=== PATIENT | male | born 1955 | race Native Hawaiian/Other Pacific Islander ===

== ENCOUNTER 2017-02-26 14:03 | Outpatient (CLI) | payer OTHER | END 2017-02-26 15:05 | disposition home or self-care (01) | LOC: RAD 14:03 | DX: M51.37 Other intervertebral disc degeneration, lumbosacral region (principal); M62.48 Contracture of muscle, other site ==

== ENCOUNTER 2020-11-25 07:00 | Inpatient (IN) | payer OTHER ==
[~2020-11-25] VITALS: Ht 175.3 cm; Wt 77.3 kg
[2020-11-25] VITALS (18 sets, daily range): BP systolic 109–159; BP diastolic 59–78; TEMP 97.4–98.7; Ht 175.3 cm; Wt 77.3 kg
[2020-11-25 07:44] LABS: PLATELET COUNT 175 K/uL (142-355)
[2020-11-25 07:52] LABS: POTASSIUM 3.4 mmol/L (3.6-5.2); SODIUM 126 mmol/L (136-145)
[2020-11-25 08:15] LABS: PARTIAL THROMBOPLASTIN TIME 31.6 SECONDS (24.5-33.6)
--- NOTE | 2020-11-25 13:35 | NUR ---
REC'D PT FROM ER VIA STRECTHER FROM ER. PT AWAKE AND ALERT. NO DISTRESS NOTED. HIGH FLOW O2 INTACT AT THIS TIME. SATS 99% WITH HIGH FLOW. DR VEE AT BS MAKING ROUNDS AT THIS TIME. PT DENIES ANY PROBOEMS AT TIME OF ADMISSOIN PT WAS ABLE TO GET OFF STRECTHER AND AMBULATE TO BED IN ROOM AT TIME OF ADMINSSION . PT VERBALLY CONSENTED TO REMDISIVIR AT TIME OF ADMSSION
[2020-11-25] MEDS ORDERED: LISI20TA31 PO (14:46)
[2020-11-25] MEDS ORDERED: INSUINJ47 SC (14:51)
[2020-11-26] VITALS (12 sets, daily range): BP systolic 145–178; BP diastolic 67–82; TEMP 97.5–98.6
[2020-11-26 05:42] LABS: PLATELET COUNT 204 K/uL (142-355)
[2020-11-26 05:56] LABS: POTASSIUM 3.3 mmol/L (3.6-5.2)
--- NOTE | 2020-11-26 07:35 | NUR ---
ROUNDING ON PATIENT AND HE IS NOTED RESTLESS AND WITH INCREASED WORKFORCE OF BREATHING RR-24 ON HIGH FLOW NASAL CANNULA 50 LPM, 100%. SHIFT ASSESSMENT COMPLETED. IV 20G TO THE RIGHT AC NOTED PATENT AND INTACT INFUSING NS AT 75 ML/HR.
--- NOTE | 2020-11-26 09:25 | NUR ---
PATIENT GIVEN MORNING MEDS AND TOOK WITHOUT DIFFICULTY.
--- NOTE | 2020-11-26 10:54 | NUR ---
PATIENT VOMITED APPROX. 100 ML OF CLEAR EMESIS WITH SMALL FOOD PARTICLES. PATIENT GIVEN 4 MG OF ZOFRAN IV PUSH.
--- NOTE | 2020-11-26 11:51 | NUR ---
PATIENT NOTED WITH BLOOD SUGAR OF 435. STAT GLUCOSE REPEAT ORDERED PLACED AT THIS TIME.
--- NOTE | 2020-11-26 12:05 | NUR ---
PATIENT WAS VERY RESTLESS WITH INCREASED GRIMACING AND MOANING. PATIENT O2 WAS FLUCTUATING FROM 85-91%, WITH ONE SATS DROPPING LOW 78% WITH RR 28-40 BPM. NOTIFIED AND NEW ORDER GIVEN FOR A ONE TIME DOSE OF ATIVAN 0.5 MG IV PUSH X1 DOSE NOW. ATIVAN GIVEN AT THIS TIME. WILL REASSESS FOR DECREASED RESTLESSNESS.
--- NOTE | 2020-11-26 14:30 | NUR ---
PATIENT TRANSFERRED FROM THE MEDICAL SURGICAL FLOOR TO ICU BED #1. PATIENT PLACED ON MONITORS WITH SPO2 AT 92% ON HIGH FLOW WITH FOLLOWING SETTINGS: 60LPM AND 100%.
--- NOTE | 2020-11-26 14:41 | NUR ---
PATIENT NOTED RESTLESS AND WITH INCREASED WORKFORCE OF BREATHING WITH RR-40S AND SPO2 91% AND FLUCTUATING DOWN INTO THE 70'S-80'S.
--- NOTE | 2020-11-26 15:30 | NUR ---
PATIENT NOTED RESTLESS AND GRIMACING AND MOANING WITH RR 41, SPO2 88%. PATIENT GIVEN MORPHINE 1 MG IV PUSH X1. WILL REASSESS FOR DECREASE IN WORKFORCE OF BREATHING.
--- NOTE | 2020-11-26 15:40 | NUR ---
AT THE BEDSIDE TALKING TO PATIENT. PATIENT CHOOSES TO BE A DNR AT THIS TIME.
--- NOTE | 2020-11-26 15:59 | NUR ---
PATIENT NOTED RESTING QUIETLY WITH EYES CLOSED, SPO2 FLUCTUATING B/W 79-89%.
--- NOTE | 2020-11-26 17:25 | NUR ---
PATIENT AWAKE AND DROWSY AND IS CALLING FOR THE NURSE TO HELP HIM WITH THE URINAL. PATIENT WAS ABLE TO REPOSITION HIMSELF TO THE BEDSIDE BUT HE IS VERY WEAK AND HAD TO BE ASSISTED WITH THE URINAL. PATIENT DID NOT VOID ANY AT THIS TIME.RR INCREASING 32
--- NOTE | 2020-11-26 17:35 | NUR ---
FSBS BLOOD SUGAR 226
--- NOTE | 2020-11-26 18:04 | NUR ---
IV TO THE LEFT AC CAME OUT WITH TIP INTACT. AREA SECURED WITH 2X2 GAUZE. IV 20G X1 ATTEMPT STARTED TO THE LEFT FOREARM WITHOUT DIFFICULTY. FLUSHES WELL.
--- NOTE | 2020-11-26 19:00 | NUR ---
RECEIVED REPORT FROM ROBBY PERRY RN. PT IS DROWSY. WEARING HIGH FLOW OXYGEN AT 60L 100 PERCENT. O2 SATS ARE FLUCTUATING 80'S TO LOW 90'S. PM ASSESSMENT COMPLETED. PT DENIES ANY HISTORY OF COPD OR SMOKING.
--- NOTE | 2020-11-26 20:24 | NUR ---
PT IS RESTLESS AND HAS HICCUPS. PT DRANK SMALL AMOUNT OF WATER AND IS USING HIGH FLOW OXYGEN AT 60L 100 PERCENT. RESP ARE 28 TO 30 PER MINUTE. PT IS DNR STATUS.
--- NOTE | 2020-11-26 22:00 | NUR ---
PT VOIDED 500ML OF DARK TEA COLORED URINE. PT IS ALERT. PT IS COVID POSITIVE.
[2020-11-27] VITALS (23 sets, daily range): BP systolic 130–176; BP diastolic 59–90; TEMP 97.6–98.4
--- NOTE | 2020-11-27 00:02 | NUR ---
PT WAS MEDICATED WITH MORPHINE 1 MG IV. PT IS RESTLESS AND RESPIRATIONS ARE 30.
--- NOTE | 2020-11-27 02:09 | NUR ---
HYDRALAZINE 10 MG IVSP GIVEN FOR ELEVATED BP OF 165/80. PT HR IS 103.
--- NOTE | 2020-11-27 02:57 | NUR ---
BP IS 160/88 AFTER HYDRALAZINE ADMINISTRATION. HR IS 102.
--- NOTE | 2020-11-27 02:59 | NUR ---
PTS O2 SAT IS 86 PERCENT TO 91 PERCENT.
[2020-11-27 05:26] LABS: PLATELET COUNT 225 K/uL (142-355)
[2020-11-27 05:41] LABS: POTASSIUM 3.9 mmol/L (3.6-5.2)
--- NOTE | 2020-11-27 07:00 | NUR ---
REPORT FROM PM SHIFT. PT RESTING WITH EYES CLOSED IN SF. EYES CLOSED. O2 SAT'S 90% ON 100% O2 PER HIGH FLOW O2 AT 60L. RR30.
--- NOTE | 2020-11-27 08:00 | NUR ---
T AWAKE & RESTLESS ,ASKING' WHEN CAN I GO HOME?' PT ORIENTED TO PLACE & SITUATION QUESTIONED WHAT DAY IT WAS, ASKED ' HOW LONG HAVE I BEEN IN HERE?' REVIEWED ADMISSION DATE & TODAYS DATE. PT BECAME ANXIOUS WITH INCREASED RESP RATE TO 34. MEDICATED WITH MORPHINE 1 MG SIVP.
--- NOTE | 2020-11-27 08:43 | NUR ---
DR VEE CALLED TO CHECK ON PATIENT. NEW ORDERS. PT ASSISTED TO TURN TO L SIDE HOB UP. A&O FORGETFUL OF HOW WEAK HE IS. EXPLAINED OXYGEN USE, REVIEWED MEDS.
--- NOTE | 2020-11-27 08:52 | NUR ---
PT'S CALLED TO CK ON HIM.DISCUSSED LABS & VITAL SIGNS.
--- NOTE | 2020-11-27 09:00 | NUR ---
PT WITH ELEVATED BP176/68, HR 98, O2 SATS 80-85%. MEDICATED WITH HYDRALAZINE 10 MG SIVP.
--- NOTE | 2020-11-27 09:52 | NUR ---
PT'S CALLED TO CHECK ON HIM.DISCUSSED VITAL SIGNS & CONDITION.
--- NOTE | 2020-11-27 10:25 | NUR ---
PHYSICAL THERAPY IN TO SEE PT.PT ASSISTED TO PRONE. PT ANXIOUS. DR PEREZ AT BS & AWARE.
--- NOTE | 2020-11-27 10:27 | NUR ---
PT MEDICATED WITH MORPHINE 1 MG SIVP FOR ANXIETY & 'MY STOMAC HURTS LYING ON IT'.HT 102,RESP RATE 34.O2 SAT 81-84%.
--- NOTE | 2020-11-27 10:32 | NUR ---
O2 SATS REMAIN 81-84% RR 36. PT REMAINS ANXIOUS. PT ASSISTED TO TURN BACK TO L SIDE AFTER HE STATES' I CAN'T LAY THIS WAY'. DR VEE HERE & AWARE.
--- NOTE | 2020-11-27 10:50 | NUR ---
RESTING WITH EYES CLOSED. RR 34, O2 SATS 85%.
--- NOTE | 2020-11-27 11:35 | NUR ---
PT RESTING WITH EYES CLOSED, RESP RATE27, O2 SAT 82%, BP 158/ 69.
--- NOTE | 2020-11-27 11:45 | NUR ---
TALKED WITH RESPIRATORY LOGAN JEFFRIES SKEIN DRIER & DR OLEARY R/T PT'S LOW O2 SATS 80-81% & OCCAISIONAL 84 %. PT HAS REFUSED VENT AT THIS TIME. PT ENCOUTAGED TO ROLL TO L SIDE. PT TOLERATED WITH O2 SAT 81-85%.
--- NOTE | 2020-11-27 12:59 | NUR ---
PT AWAKE & REQUESTING WATER, ASSISTED TO DRINK H2O WITHOUT PROBLEMS. ASSISTED TO TURN TO L SIDE.
--- NOTE | 2020-11-27 13:04 | NUR ---
PT RESTING WITH EYES CLOSED, O2 SATS 96%.
--- NOTE | 2020-11-27 14:56 | NUR ---
PT AWAKE & CALLING FOR WATER. ASSISTED TO DRINK. DRANK SMALL AMT OF ENSURE.. O2 SATS DECREASE TO 80-81% WHEN PT ROLLED TO BACK,MEDICATED WITH HYDRALAZINE 10 MG SIVP FOR BP 169/64. O2 SATS BACK UP TO 88 % AFTER ROLLING BACK TO L SIDE. FACE BATHED, MOUTHCARE.
--- NOTE | 2020-11-27 15:57 | NUR ---
RESTING QUIETLY WITH EYES CLOSED. O2 SAT 88%,RESP RATE28. PT CALM.
--- NOTE | 2020-11-27 16:05 | NUR ---
PT REOLLED SELF TO BACK,C/O MY FEETS COLD. PT COVERED WITH A SHEET, BACK TO SLEEP.
--- NOTE | 2020-11-27 17:02 | NUR ---
PT MEDICATED WITH HYDRALAZINE 10MG SIVP FOR ELEVATED BP. 1703 MEDICATED WITH MORPHIME 1MG SIVP FOR RESTLESSNESS. O2 SAT 85%.
--- NOTE | 2020-11-27 18:10 | NUR ---
PT RESTING QUIETLY WITH EYES CLOSED. CALM. BP 130/59,HR 106,RR 29-31.DR VEE CALLED TO CK ON PT. REPORTED VS AT THIS TIME.
--- NOTE | 2020-11-27 21:51 | NUR ---
PT MEDICATED AT 1930PM MORPHINE 1 MG IVSP. DRANK 100 ML OF WATER. 21:00 PM PT WOKE UP BECAME RESTLESS. GROANING. RESPIRATIONS INCREASED. O2 SATS DROP. MEDICATED WITH MORPHINE 1 MG IVSP. USING HIGH FLOW OXYGEN.
--- NOTE | 2020-11-27 22:44 | NUR ---
PT REPOSITIONED HIMSELF IN BED. LYING ON HIS RIGHT SIDE. O2 SAT IS 82 PERCENT. RESP 44. HR IS 101. USING HIGH FLOW OXYGEN.
--- NOTE | 2020-11-27 23:53 | NUR ---
MORPHINE 1 MG IVSP GIVEN TO PT. PT IS RESTLESS AND RESP ARE 38 TO 40 BPM. BP IS 150/76. O2 SAT IS 77 PERCENT.
[2020-11-28] VITALS (10 sets, daily range): BP systolic 132–169; BP diastolic 60–93; TEMP 97.4–98.9
--- NOTE | 2020-11-28 01:14 | NUR ---
PT WAS DESATING INTO THE 60'S AND RESPIRTORY EFFORT INCREASING IN RATE TO 44. RT SPOKE WITH PT ABOUT USING THE BIPAP. PT VOICED UNDERSTANDING THAT BIPAP WOULD HELP. PT UNDERSTOOD THAT THIS WAS NOT THE VENTILATOR. BIPAP MASK PLACED ON PT. PT SAT IMPROVED NOW AT 90 PERCENT. RESP RATE 30 PER MINUTE. HR IS 99 PERCENT.
--- NOTE | 2020-11-28 01:28 | NUR ---
BP IS 172/75. HYDRALAZINE 10 MG IVSP GIVEN. WILL RECHECK. PT IS USING BIPAP AND PT'S O2 SAT IS NOW 91 PERCENT AND RATE IS 28 BPM.
--- NOTE | 2020-11-28 02:10 | NUR ---
PT IS OFF BIPAP. PER HIS REQUEST, "I CANT TAKE THIS ANYMORE"! O2 SAT DROPPED TO 74 PERCENT. RESP ARE 34-40 PER MINUTE.PLACED BACK ON HIGH FLOW OXYGEN AND RESP RATE IS 42 PER MINUTE.
--- NOTE | 2020-11-28 02:35 | NUR ---
PT REMOVED FROM BIPAP AND PLACED BACK ON HFNC. SPO2 78%
--- NOTE | 2020-11-28 03:00 | NUR ---
PT IS RESTING ON HIS RIGHT SIDE. USING HIGH FLOW OXYGEN AT 60L 100 PERCENT.
--- NOTE | 2020-11-28 04:55 | NUR ---
PT USED URINAL AND VOIDED 500 ML OF URINE. PT MEDICATED WITH MORPHINE 1 MG IVSP.
[2020-11-28 05:26] LABS: PLATELET COUNT 231 K/uL (142-355)
[2020-11-28 05:38] LABS: POTASSIUM 4.2 mmol/L (3.6-5.2)
--- NOTE | 2020-11-28 08:00 | NUR ---
SPOKE TO DR GILBERT CONCERNING PT'S LAST WISHES TO REMAIN A DNR. PT ORIENTED X 4 AND VERBALLY STATED THAT WAS HIS WISHES AND HE DID NOT WANT TO MAKE ANY CHANGES AT THIS TIME. PT HOWEVER DID EXPRESS WISHED TO SEE HIS AND SON THROUGH A WINDOW IF AT ALL POSSIBLE. AWAITING FURTHER ORDERS VIA
--- NOTE | 2020-11-28 08:30 | NUR ---
PT WOKE UP CONFUSED AND VERY ANXIOUS. PT STATED "I NEED TO GET UP AND GO TO BED." ORIENTED PT TO LOCATION AND INFOMRED HIM HE WAS IN BED TO TRY TO RELAX. PT'S RR NOTED TO BE 44 AND SATS ON HIGH FLOW 68%. PT REC'D PRN MORPHINE AT THIS TIME PER MD ORDERS.
--- NOTE | 2020-11-28 08:45 | NUR ---
PT REMAINS VERY ANXIOUS AND CONFUSED. DR GILBERT NOTIFIED AND NEW ORDERS REC'D TO TRY ATIVAN 1MG IV NOW AND REPEAT DOSE OF MORPHINE AT THIS TIME.
--- NOTE | 2020-11-28 09:05 | NUR ---
PT FINALLY CALM AND RESTING IN BED WITH EYES CLOSED. ASSISTED PT TO HIGH FOWLERS POSITION. RR REMAIN INCREASED AT 40 WITH SATS ON HIGH FLOW AROUND 70-72%. AWARE. WILL CONT TO MONITOR.
--- NOTE | 2020-11-28 12:20 | NUR ---
PT'S FATHER IN LAW CALLED AND PASSWORD PROVIDED BY HIM TO ME. ALL QUESTIONS ANSWERED TO MY ABILITY. EXPLAINED AGAIN TO [place] VIA PHONE PT WAS VERY SICK AND HAD INFORMED MD OF HIS WIHSES PRIOR TO TODAY. EXPLAINED TO THEM PT ALSO STATED TO ME THIS AM HE DID NOT WISH TO BE PLACED ON VENT AT THIS TIME.
--- NOTE | 2020-11-28 12:45 | NUR ---
PT ASKAED FOR URINAL AT THIS TIME BUT UNABLE TO VOID. PT HAS NOT HAD ANY URINE OUTPUT THIS SHIFT. PT'S LOWER ABD PALPATED AND NOTED TO BE DISTENDED. DR GILBERT CALLED ON PHONE NO ANSWER. PT REPEARDLY SAYING "I HAVE TO GO I HAVE TO GO". SO 16FR QUINTANA CATH PLACXED PER STERILE TECHNIQUE. PT NOTED TO HAVE 1000 ML OF CLEAR YELLOW URINE BACK IMMEDIATLY IN QUINTANA BAG. QUINTANA CLAMPED AT THIS TIME. PT ROLLED TO RT LATERAL SIDE AND RESTING WITH EYES CLOSED. RR DECREASED FROM 50-42 PAST EMPTYING BLADDER. WILL CON'T TO MONITOR.
--- NOTE | 2020-11-28 15:15 | NUR ---
DR. GILBERT HERE AT PT'S BEDSIDE, CLARIFIED WITH PT THAT HE DOES NOT WANT TO BE INTUBATED. DR. GILBERT ASSESSED PT AND EXPLAINED TO PT THAT HE HAS A QUINTANA CATHETER BECAUSE PT KEEPS TELLING HIM THAT HE NEEDS TO PEE. PT'S RR 59 O2 77 HR 127. PT GRUNTING AND STATING "HELP ME" ENCOURAGED PT TO SLOW HIS BREATHING, MORPHINE 1 MG IV SLOW PUSH GIVEN AT THIS TIME FOR SHORTNESS OF BREATH.
--- NOTE | 2020-11-28 19:35 | NUR ---
PT AROUSES AND IS RESTLESS, RESP RATE INCREASED TO 35-40 EFFORT ALSO INCREASED, PT APPEARS TO HYPERVENTILATE, REASSURED PT, GAVE PT SIPS OF WATER PER REQUEST. PT REMAINS RESTLESS RESP RATE NOW 48 O2 SAT 85% PULSE RATE INCREASED TO 112. 0 GAVE MORPHINE 1MG IVP PRN. WILL MONITOR CLOSELY. MOUTH AND FACE WIPED WITH WET CLOTHE PER PT REQUEST. RAILS UP, BED IN LOW POSITION.
--- NOTE | 2020-11-28 20:12 | NUR ---
PT NOW RESTING WITH EYES CLOSED, NO ACUTE DISTRESS NOTED. RESP RATE AND EFFORT HAS DECREASED RATE 31, O2 SAT INCREASED TO 89% ON HFNC, PULSE 99, NO REACTIONS TO PRN MORPHINE. WILL MONITOR CLOSELY, RAILS UP, BED IN LOW POSITION, CALL LIGHT IN REACH.
--- NOTE | 2020-11-28 21:05 | NUR ---
SPOKE WITH DR. CULLEN IN ER. NEW ORDER TO CHANGE MORPHINE TO 2MG IVP Q 2 HOURS PRN, CHANGE ATIVAN TO 2MG IVP Q 4 HOURS PRN FOR RESPIRATORY DISTRESS/SOB. TELEPHONE ORDER.
--- NOTE | 2020-11-28 21:40 | NUR ---
RESP RATE HAS DECREASED TO 30, O2 SAT INCREASED TO 83%, PULSE RATE DECREASED TO 108 SINCE PRN ATIVAN GIVEN. PT RESTING WITH EYES CLOSED, NO ACUTE DISTRESS NOTED, IV INTACT TO L HAND, YOGHURT MAKER IN USE, HIGH FLOW NC IN USE, WILL MONITOR CLOSELY, RAILS UP, BED IN LOW POSITION. PT IN HIGH KEATING'S.
--- NOTE | 2020-11-28 22:36 | NUR ---
PT AROUSES AND IS VERY RESTLESS MOVING FROM SIDE TO SIDE IN BED, MOANING OFF AND ON ASKING FOR WATER, APPEARS VERY ANXIOUS RESP RATE 44 LABORED AND EFFORT INCREASED, PULSE RATE INCREASED TO 120s, O2 SAT HAS DROPPED TO 73% ON HIGH FLOW NC. REASSURED PT MULTIPLE TIMES AND ENCOURAGED TO TAKE DEEP BREATHS, NOTE PT MOUTH BREATHING, WILL NOW FOLLOW COMMANDS OR ANSWER SIMPLE QUESTION. PT'S SKIN FEELS HOT, BOUGHT FAN TO BEDSIDE AND ALSO GAVE PT APPROX 120ML WATER. GAVE MORPHINE 2MG IVP PRN FOR RESP DISTRESS. WILL MONITOR CLOSELY, RAILS UP, BED IN LOW POSITION. HOB ELEVATED.
--- NOTE | 2020-11-28 23:10 | NUR ---
PT NOW RESTING WITH EYES CLOSED, RESP RATE IN LOW 30s, LESS EFFORT AND DISTRESS NOTED SINCE PRN MORPHINE GIVEN, O2 SAT INCREASED TO 81-82%, PULSE RATE 103. 16F QUINTANA PATENT DRAINING TO BEDSIDE, IV INTACT TO L HAND WITH NS INFUSING, SKIN VERY WARM TO TOUCH AND DRY. WILL MONITOR CLOSELY, RAILS UP, BED IN LOW POSITION.
--- NOTE | 2020-11-28 23:50 | NUR ---
PT CONTINUES TO REST QUIETLY WITH EYES CLOSED, NO S/S OF ACUTE DISTRESS NOTED, RESP RATE 33, O2 SAT 85% ON HIGH FLOW NC 60 LPM FIO2 100%, LAYING ON L SIDE WITH HOB ELEVATED, WILL MONITOR CLOSELY, RAILS UP, BED IN LOW POSITION.
[2020-11-29] VITALS (18 sets, daily range): BP systolic 124–182; BP diastolic 62–96; TEMP 97.3–98.5
--- NOTE | 2020-11-29 00:24 | NUR ---
RESP RATE AND EFFORT HAS INCREASED PT ROLLING AROUND IN BED MOANING, O2 SAT 82%, APPEARS ANXIOUS AND RESTLESS, ATTEMPTED TO REASSURE PT BUT PT REMAINS THE SAME. GAVE MORPHINE 2MG SLOW IVP PRN FOR PAIN AND RESPIRATORY EFFORT. WILL MONITOR CLOSELY, RAILS UP, BED IN LOW POSITION.
--- NOTE | 2020-11-29 01:09 | NUR ---
PT AROUSES AND APPEARS RESTLESS ROLLING SIDE TO SIDE IN BED WHEN ASKED IF HE WAS IN PAIN PT DOES NOT ANSWER MANUFACTURING TECHNOLOGY ANALYST, RESP RATE INCREASED TO HIGH 40s, PULSE RATE INCREASED TO 120, O2 SAT DROPPED TO 79% PT REMAINS ON HIGH FLOW NC AT 60 LPM AND FIO2 OF 100%. RESP EFFORT HAS INCREASED AND LABORED. GAVE ATIVAN 2MG SLOW IVP PRN. WILL MONITOR CLOSELY.
--- NOTE | 2020-11-29 01:18 | NUR ---
PT RESTING WITH EYES CLOSED, NO S/S OF ACUTE DISTRESS OR PAIN NOTED. SINCE PRN ATIVAN GIVEN RESP RATE DECREASED TO 28, O2 SAT INCREASED TO 89%, PULSE RATE 96, NO REACTIONS NOTED TO PRN MEDICATION. 20G IV INTACT TO L HAND WITH NS ONGOING, 16F QUINTANA PATENT DRAINING TO BEDSIDE, NOTE PT CHANGES POSITIONS IN BED PER SELF. HIGH FLOW NC IN USE AT 60 LPM AND FIO2 OF 100%. WILL MONITOR CLOSELY, RAILS UP, BED IN LOW POSITION. LAYING ON L SIDE IN BED.
--- NOTE | 2020-11-29 02:00 | NUR ---
RESTING WITH EYES CLOSED, NO ACUT DISTRESS NOTED.
--- NOTE | 2020-11-29 02:36 | NUR ---
PT RESTLESS AND RESPIRATORY RATE HAS INCREASED 50s AND EFFORT IS MORE LABORED, APPEARS ANXIOUS GRUNTS AT TIMES. GAVE MORPHINE 2MG SLOW IVP PRN AT THIS TIME, WILL MONITOR CLOSELY. ATTEMPTED TO TALK WITH PT AND REASSURE HIM.
--- NOTE | 2020-11-29 02:45 | NUR ---
NOTIFIED RESPIRATORY ABOUT PT'S STATUS RESP RATE O2 SAT. INFORMED THAT PT IS MOUTH BREATHER, SUGGESTED BY RESP TO PLACE NRB MASK OVER PT'S HFNC. NRB MASK PLACE ON PT AT THIS TIME. NO CHANGES NOTED AT THIS TIME.
--- NOTE | 2020-11-29 03:14 | NUR ---
LAYING WITH EYES CLOSED IN BED, RESP RATE 41, O2 SAT 62% ON HFNC AT 60LPM FIO2 OF 100%, TELEMETRY SHOWING TACHYCARDIA 119, NOTE LABORED BREATHING AND STILL INCREASED RESP EFFORT. RESP RATE HAS DECREASED SOME SINCE PRN MORPHINE GIVEN. REASSURED PT MULTIPLE TIMES. RED HAT LINUX ADMINISTRATOR REMAINS AT BEDSIDE.
--- NOTE | 2020-11-29 04:20 | NUR ---
PT RESTING WITH EYES CLOSED IN BED, RESP RATE REMAINS INCREASED AT 44, O2 SAT 61-65% WITH HIGH FLOW NC AT 60LPM AND FIO2 OF 100%, IV INTACT WITH FLUID ONGOING, RESP RATE LABORED. DR IN ER AND RESPIRATORY ARE AWARE. PT IS DNR AND DOES NOT WANT TO BE INTUBATED. HEART RATE 115-122.
--- NOTE | 2020-11-29 04:30 | NUR ---
SPOKE WITH RESPIRATORY ABOUT PT STATUS RESP RATE IN 40s O2 SAT IN LOW 60s.
--- NOTE | 2020-11-29 04:40 | NUR ---
GAVE MORPHINE 2MG SLOW IVP PRN FOR CONTINUED RESPIRATORY DISTRESS, WILL MONITOR CLOSELY.
--- NOTE | 2020-11-29 05:03 | NUR ---
RESTING IN BED WITH EYES CLOSED, RESP RATE IN 40s, O2 SAT ON HIGH FLOW NC 64-68%, REMAINS TACHY 120-125. WILL MONITOR CLOSELY, RAILS UP, BED IN LOW POSITION.
--- NOTE | 2020-11-29 05:12 | NUR ---
SPOKE WITH DR. CULLEN IN ER TO LET HIM KNOW ABOUT PT'S STATUS. O2 SATS REMAIN IN 60s, resp rate 40-50, heart rate 124, pt remains on high flow nc with fio2 100% and at 60 lpm. no new orders at this time.
--- NOTE | 2020-11-29 05:20 | NUR ---
pt now awake rolling from side to side in bed grunting, will not answer simple questions, resp rate in 50s labored, o2 sat 61% on high flow nc, heart rate tachy 130, pt appears anxious and agitated, pulled at cords. 0523 gave ativan 2mg slow ivp prn. will monitor closely, rails up, bed in low position.
--- NOTE | 2020-11-29 05:39 | NUR ---
RESP RATE REMAINS LABORED, O2 SAT HAS IMPROVED TO 77% ON HFNC, HEART RATE 120, PT NO LONGER RESTLESS AND NO LONGER ROLLING AROUND IN BED GRUNTING. IV INTACT, QUINTANA PATENT, WILL CONTINUE TO MONITOR CLOSELY, RAILS UP, BED IN LOW POSITION.
--- NOTE | 2020-11-29 06:03 | NUR ---
DR. CULLEN FROM ER CALLED TO CHECK ON PT. NEW ORDER FOR SOLUMEDROL 125MG IVP X1 DOSE NOW.
[2020-11-29 06:33] LABS: PLATELET COUNT 137 K/uL (142-355)
[2020-11-29 07:16] LABS: POTASSIUM 4.4 mmol/L (3.6-5.2)
--- NOTE | 2020-11-29 08:31 | NUR ---
PT RESLESS WITH INCREASED RR & EFFORT RR62, O2 SAT 60%. MEDICATED WITH MORPHINE 2MG SIVP.
--- NOTE | 2020-11-29 08:50 | NUR ---
REPORTED PT'S CONDITION,O2 SAT, HR & RR RATE TO DR GILBERT. REPORTED PT UNABLE TO DO MDI'S. NO NEW ORDERS AT THIS TIME.
--- NOTE | 2020-11-29 09:06 | NUR ---
PT REMAINS RESTLESS.ASSISTED TO TURN TO R SIDE, HOB UP. PT CONTINUES TO NOT RESPOND VERBALLY, WILL TRY TO PULL OFF NONREBREATHER MASK. BP 156/72. MEDICATED WITH ATIVAN 2MG SIVP. HR 50, O2 SAT 62%.
--- NOTE | 2020-11-29 09:21 | NUR ---
0845 RT IN TO SEE PT RT PLACED NONREBREATHER BACK ON PT OVER HIGH FLOW NC D/T PT MOUTHBREATHING. PT UNABLE TO DO MDI'S REPORTED TO RT. PT CONTINUES TO BE RESTLESS. PT PULLED UP IN BED & PLACED IN MODIFIED HIGH FOWLERS.
--- NOTE | 2020-11-29 09:30 | NUR ---
0700 REORT FROM PM SHIFT. PT ON L SIDE, HOB UP, EYES CLOSED, CALM. PT WITH O2 SAT AT 66%, RR 40 ON HIGH FLOW O2 60L/NC & 100% NONREBREATHER MASK. PT IS MOUTH BREATHER, PLACED PER PM SHIFT. HR121.
--- NOTE | 2020-11-29 10:30 | NUR ---
DR GILBERT IN TO SEE PATIENT. O2 SATS 59-60. DISCUSSED PT'S GWETTING SO ANXIOUS WHEN HE AROUSES & TURNS OVER. RR & HR INCREASE & O2 SATS DECREASE. NEW ORDERS
--- NOTE | 2020-11-29 11:33 | NUR ---
PT RESTLESS,ANXIOUS WHILE TURNING SELF TO R SIDE. ATTEMPTED IV STICK X2. NAILBEDS DUSKY, FACE FLUSHED. MEDICATED WITH MORPHINE 2MG SIVP.
--- NOTE | 2020-11-29 13:02 | NUR ---
PT RESTLESS,MOVING SELF IN BED. MEDICATED WITH ATIVAN 2MG SIVP.
--- NOTE | 2020-11-29 13:24 | NUR ---
PT CALMER.O2 SAT 83% RR 31.
--- NOTE | 2020-11-29 14:11 | NUR ---
PT RESTLESS, PULLING AT WIRES,TURNING SELF IN BED. BP CUFF ON R THIGH. BP 180/86. REMAINED ELEVATED WITH ALEC 182/95, PT MEDICATED WITH HYDRALAZINE 10MG SIVP.
--- NOTE | 2020-11-29 14:38 | NUR ---
PT CONTINUES TO BE RESTLESS. UNABLE TO STATE IF HE HURTS. MEDICATED WITH MORPHINE 2MG SIVP. PT PULLED UP IM BED MODIFIED HF.FACE BATHED, MOUTHCARE, GOWN & DRAW SHEET CHANGED.
--- NOTE | 2020-11-29 15:27 | NUR ---
BP REMAINS ELEVATED.203/83, HR 120. IV INSERTION ATTEMPTED X 2 PER LUI FARIAS RN & X 2 PER NICOLA PERRY RN. PT RESTLESS. MEDICATED WITH LABETELOL 10MG SIVP.
--- NOTE | 2020-11-29 16:00 | NUR ---
BP ALEC 174/83,HR 101.
--- NOTE | 2020-11-29 16:47 | NUR ---
PT CONTINUES TO REST WITH EYES CLOSED,O2 SAT 88%, HR 92 BPM.
--- NOTE | 2020-11-29 17:00 | NUR ---
CALL TO DR GILBERT TO UPDATE HIM ON PT'S CONDITION. REPORTED UNABLE TO START SECOND IV. NEW ORDER FOR TYLENOL 1000MG IV Q6H PRN & ORDER FOR PICC LINE INSERTION IN AM.
--- NOTE | 2020-11-29 17:42 | NUR ---
PT THRASING AROUND IN BED, PULLING 100% NON REBREATHER MASK & HIGHFLOW O2 OFF. REPOSITIONED FOR COMFORT, MEDICATED WITH ATIVAN 2MG SIVP.
--- NOTE | 2020-11-29 18:04 | NUR ---
PT WITH EDEMA TO BOTH HANDS & MOD AMT TO FEET. DR GILBERT NOTIFIED PER RADHA HAWLEY AGRICULTURAL RESEARCH ENGINEER NURSE. NEW ORDER FOR LASIX 20MG IV X 1.
--- NOTE | 2020-11-29 18:11 | NUR ---
PT CALMER BUT CONTINUES RTO MOVE RESTLESSLY IN BED. MUMBLES. MEDICATED WITH TYLENOL 1000MG SIVP.
--- NOTE | 2020-11-29 18:11 | NUR ---
PT CONTINUES TO MOVE RESTLESSLY IN BED. MUMBLES. MEDICATED WITH TYLENOL 100MG IVPB.
--- NOTE | 2020-11-29 19:34 | NUR ---
PT AROUSES AND IS MOANING/GRUNTING OUT, VERY RESTLESS MOVING LEGS AND HANDS, APPEARS TO BE ANXIOUS, ATTEMPTED TO REASSURE PT WITH NO CHANGE, RESP RATE REMAINS RAPID 45-55 LABORED, O2 SAT REMAINS LOW IN 50s WITH HIGH FLOW NC IN USE AT 60LPM FIO2 100%, HEART RATE TACHY 115-120. GAVE MORPHINE 2MG SLOW IVP PRN. WILL MONITOR CLOSELY, RAILS UP X3, BED IN LOW POSITION, CALL LIGHT IN REACH.
--- NOTE | 2020-11-29 20:06 | NUR ---
PT RESTING WITH EYES CLOSED, LESS RESP DISTRESS NOTED SINCE PRN MORPHINE GIVEN, IV INTACT WITH NS INFUSING AND PROCAL INFUSING AT 50ML/HR, O2 VIA HIGH FLOW NC 60 LPM AND FIO2 100%, SKIN WARM AND DRY, BS+, 16F [place] PATENT DRAINING TO BEDSIDE, LUNGS DIMINISHED WITH SHALLOW RAPID RESPIRATIONS, RADIAL PULSES INTACT/EQUAL, VITALS BEING MONITORED, STYRENE DEHYDRATION REACTOR OPERATOR NOTES TACHYCARDIA IN 110s REGULAR, 20G IV INTACT TO L FA. WILL MONITOR CLOSELY, RAILS UP, BED IN LOW POSITION, CALL LIGHT IN REACH.
--- NOTE | 2020-11-29 21:34 | NUR ---
PT RESTLESS IN BED LEANING FOWARD AND MOVING HANDS AROUND IN BED PULLS SLIGHTLY AT CORDS, GRUNTING, WHEN ASKED ABOUT PAIN OR WHAT IS WRONG PT DOES NOT RESPOND TO CORRECTIONAL PROGRAM OFFICER OR OPEN EYES, REASSURED PT, RESP EFFORT INCREASED, RESP RATE IN 40s, GENERAL SUPERVISOR SHOWS TACHYCARDIA IN 110S, O2 SAT REMAINS IN 60s WITH HFNC AND NRB IN USE. REPOSITIONED HOB WITH NO CHANGE, ANXIOUS. GAVE ATIVAN 2MG SLOW IVP PRN. WILL MONITOR CLOSELY.
--- NOTE | 2020-11-29 22:00 | NUR ---
REMAINS RESTLESS AND ANXIOUS BUT HAS IMPROVED SINCE PRN MEDICATION GIVEN. WILL MONITOR CLOSELY.
--- NOTE | 2020-11-29 22:10 | NUR ---
TOMBSTONE ERECTOR HELPER ALONG WITH MONICA DEE RN WITNESSED PHONE CONSENT FROM PT'S [employer] FOR PICC LINE PLACEMENT. EDUCATED ABOUT PICC AND SOME RISKS. PT'S DID CONSENT FOR PROCEDURE TO BE DONE.
--- NOTE | 2020-11-29 23:10 | NUR ---
PT REMAINS RESTLESS AND ANXIOUS GRUNTING AND MOVING AROUND IN BED. WIPED FACE WITH WARM WET CLOTH, MOUTH CARE PROVIDED AND LIPS MOISTURIZED, PT PULLED UP IN BED AND REPOSITIONED TO R SIDE WITH HOB IN HIGH KEATING'S POSITION. AFTER APPROX 5 MINUTES PT NOW RESTING CALMLY AND QUIETLY WITH EYES CLOSED, WILL MONITOR CLOSELY. VITALS HAVE IMPROVED, HEART RATE 96, RESP RATE IN MID TO LOW 30s, O2 SAT 82%. FEET AND R ARM ELEVATED ON PILLOWS, WILL MONITOR CLOSELY, RAILS UP, BED IN LOW POSITION. MANAGER ORANGE ALSO TURN MUSIC CHANNEL ON VERY SOFTLY.
[2020-11-30] VITALS (20 sets, daily range): BP systolic 124–186; BP diastolic 58–89; TEMP 97.3–97.8
--- NOTE | 2020-11-30 00:12 | NUR ---
RESTING WITH EYES CLOSED, NO ACUTE DISTRESS NOTED, PT APPEARS CALM, VITALS BEING MONITORED, RESP RATE 32, O2 SAT 87%, PULSE RATE IN 90s. REMAINS IN HIGH KEATING'S POSITION ON R SIDE, WILL MONITOR CLOSELY, RAILS UP, BED IN LOW POSITION.
--- NOTE | 2020-11-30 01:16 | NUR ---
PT AROUSES AND IS RESTLESS MOVING HANDS AROUND UP IN AIR LEANING FOWARD OVER AND OVER AGAIN GRUNTING, ATTEMPTED TO REASSURE PT WITH NO CHANGE. GAVE MORPHINE 2MG SLOW IVP PRN FOR S/S PAIN/ANXIETY. IV REMAINS INTACT WITH NS AND PROCAL ONGOING, VITALS BEING MONITORED, GRAIN BROKER IN USE, QUINTANA PATENT, HIGH FLOW NC REMAINS IN USE. PT REMAINS IN HIGH KEATING'S POSITION BUT ON HIS BACK WITH FEET ELEVATED ON PILLOW. WILL MONITOR CLOSELY, RAILS UP, BED IN LOW POSITION, CALL LIGHT IN REACH. NOTE PT DOES NOT ANSWER QUESTIONS OR SPEAK TO ACID CLEANER.
--- NOTE | 2020-11-30 01:30 | NUR ---
PT RESTING QUIETLY IN BED WITH EYES CLOSED, NO S/S OF PAIN OR ACUTE DISTRESS NOTED, RESP RATE 38 WITH LESS EFFORT, SMOOTH AND BURR WORKER COMPOSITES SHOWS RATE OF 96, O2 SAT 94% ON HFNC AT 60 LPM WITH FIO2 OF 100%, IV INTACT WITH PROCAL AND NS ONGOING, QUINTANA PATENT DRAINING TO BEDSIDE, HOB REMAINS ELEVATED, NO REACTIONS NOTED TO PRN MEDICATION. WILL MONITOR CLOSELY, RAILS UP, BED IN LOW POSITION.
--- NOTE | 2020-11-30 02:00 | NUR ---
RESTING IN BED WITH EYES CLOSED, NO S/S OF PAIN OR DISTRESS NOTED, RESP RATE 42, O2 SAT 94% ON HIGH FLOW NC, HEART RATE 94 REGULAR. HOB ELEVATED, WILL MONITOR CLOSELY, RAILS UP, BED IN LOW POSITION.
--- NOTE | 2020-11-30 04:15 | NUR ---
PT AROUSES AND IS VERY RESTLESS LEANING FOWARD IN BED AND MOVING ARMS AND LEGS, MOANING/GRUNTING OUT, APPEARS ANXIOUS, ATTEMPTED TO REASSURE PT AND ALSO REPOSITIONED PT TO R SIDE WITH HOB ELEVATED, FEET AND R ARM ELEVATED ON PILLOWS. PT REMAINS RESTLESS AND CONTINUES TO REPEATEDLY LEAN FOWARD IN BED GRUNTING. NOTE RESP RATE INCREASED TO 48 WITH INCREASED EFFORT AND LABORED, O2 SAT DROPPED TO 87% ON HIGH FLOW NC AT 60 LPM FIO2 OF 100%, PULSE RATE NOW TACHY AGAIN 105. PT WILL NOT SPEAK TO PORT STEWARD SO UNABLE TO ACCESS IF PT IS ANXIOUS OR IN PAIN. GAVE ATIVAN 2MG SLOW IVP PRN FOR AGITATION/ANXIETY. WILL MONITOR CLOSELY, RAILS UP, BED IN LOW POSITION.
--- NOTE | 2020-11-30 04:35 | NUR ---
PT REMAINS RESTLESS AND MOANING/GRUNTING OUT AT THIS TIME.
--- NOTE | 2020-11-30 04:55 | NUR ---
PT'S FACE WIPED WITH WARM WET CLOTH AND MOUTH CARE PROVIDED, LIPS MOISTURIZED, PT STILL MOANING/GRUNTING OUT, GAVE TYLENOL 1000MG IV PER PRN ORDER. WILL MONITOR.
--- NOTE | 2020-11-30 05:25 | NUR ---
PT REMAINS RESTLESS IN BED, MOANING/GRUNTING OUT, LEANING TOWARD R SIDE OF BED AND MOVING HIS LEGS TO R SIDE OF BED PULLING ON RAILS. RESP RATE INCREASED STILL AND LABORED WITH MORE EFFORT, REASSURED PT WITH NO CHANGE, PT HAS BEEN REPOSITIONED TWICE IN LAST HOUR ALSO HOB ADJUSTED MULTIPLE TIMES TRYING TO GET PT TO A POSITION OF COMFORT. GAVE MORPHINE 2MG SLOW IVP FOR CONTINUED RESP DISTRESS AND S/S OF PAIN. WILL MONITOR CLOSELY, RAILS UP, BED IN LOW POSITION. HOB UP, FEET AND R ARM ELEVATED ON PILLOWS.
--- NOTE | 2020-11-30 05:40 | NUR ---
PULLED PT UP AND REPOSITIONED HIM AGAIN, NOW ON BACK IN SEMI-KEATING'S POSITION, FEET AND R HAND/ARM ELEVATED ON PILLOWS, PT REMAINS AWAKE AND SLIGHTLY RESTLESS, STARTING TO CALM DOWN. WILL MONITOR.
--- NOTE | 2020-11-30 05:50 | NUR ---
PT NOW RESTING QUIETLY WITH EYES CLOSED, NO S/S OF PAIN OR DISTRESS NOTED, RESP RATE 33, O2 SAT 90% ON HIGH FLOW NC AT 60 LPM LESS LABORED RESPIRATIONS, APPEARS CALM, HEART RATE 96, QUINATNA PATENT, IV INTACT TO L FA WITH PROCAL AND NS INFUSING, VITALS BEING MONITORED, ON BACK WITH HOB IN SEMI-KEATING'S POSITION, WILL MONITOR CLOSELY, RAILS UP, BED IN LOW POSITION, CALL LIGHT IN REACH.
--- NOTE | 2020-11-30 07:04 | NUR ---
RECEIVED REPORT FROM GISELE HOLGUIN RN. PATIENT IS NOTED RESTING QUIETLY IN THE BED WITH EYES CLOSED. PATIENT REMAINS ON HIGH FLOW WITH SETTINGS FOLLOWS: 60 LPM- 100% AND ON NON REBREATHER 100% WITH SPO2 94%, RR-31. PATIENT IS SOMNOLENT AND BECOMES EASLIY AGITATED WITH TACTILE STIMULATION. IV 20G PRESENT TO THE LEFT FOREARM INFUSING PROCAL AT 50 ML/HR AND NS AT 25ML W/O DIFFICULTY.BILATERAL LOWER EXTREMITIES ARE ELVATED WELL UPPER EXTREMITIES. 16 F.QUINTANA CATHETER IS PRESENT AND INTACT DRAINING APPROX. 100 ML OF YELLOW URINE. SHIFT ASSESSMENT COMPLETED. BED LOCKED IN LOW POSITION, SIDE RAILS UP X2, CALL LEONARD WITHIN REACH.
[2020-11-30 07:50] LABS: PLATELET COUNT 100 K/uL (142-355)
--- NOTE | 2020-11-30 08:13 | NUR ---
PATIENT NOTED GRIMACING AND MOANING. PATIENT IS VERY RESTLESS. HR 107, RR-30, BP 173/94. INCREASED WORKFORCE OF BREATHING NOTED WITH PATIENT RR IN THE UPPER 30'S. MORPHINE 2 MG GIVEN IV PUSH. WILL REASSESS FOR DECREASE IN RESTLESSNESS.
--- NOTE | 2020-11-30 08:43 | NUR ---
30 MINUTES POST IV MORPHINE PATIENT IS STILL RESTLESS MOANING AND ATTEMPTING TO LIFT BOTH OF HIS HANDS BUT UNABLE TOO. PATIENT REPOSITIONED ON HIS BACK FOR COMFORT.
--- NOTE | 2020-11-30 08:44 | NUR ---
BLOOD PRESSURE 173/94, HR- 107. LABETOLOL GIVEN ORDERED FOR HIGH BLOOD PRESSURE.
--- NOTE | 2020-11-30 08:58 | NUR ---
PATIENT IS STILL NOTED RESTLESS WITH GRIMACING AND MOANING NOTED. PATIENT IS STILL UNABLE TO VERBAL STATE IF HE IS HURTING OR UNCOMFORTABLE. HR IS 96 AND CURRENT BLOOD PRESSURE IF 169/82 AND RR 32. PATIENT GIVEN ATIVAN 2 MG IV TO HELP WITH RESTLESSNESS. WILL REASSESS FOR NO DISTRESS.
--- NOTE | 2020-11-30 09:20 | NUR ---
POST ATIVAN 2 MG IV PATIENT IS RESTING QUIETLY WITH EYES CLOSED. RR 29 AND BLOOD PRESSURE 166/85.
--- NOTE | 2020-11-30 09:20 | NUR ---
AMANDA REAGAN COORDINATE MEASURING MACHINE TECHNICIAN IS HERE FOR PICC LINE INSERTION AND PLACEMENT.
--- NOTE | 2020-11-30 10:31 | NUR ---
X-RAY CONFIRMATION RECEVIED AND PICC LINE IS IN PLACE AT THIS TIME.
--- NOTE | 2020-11-30 10:56 | NUR ---
BILATERAL WILDA HOSE APPLIED FOR DVT PROPHYLAXIS.
--- NOTE | 2020-11-30 11:07 | NUR ---
PATIENT NOTED WITH A SMALL BOWEL MOVEMENT STAIN ON HIS BOTTOM SHEET. PATIENT REPOSITIONED IN A SUPINE POSITION AND NOTED HE DESATS INTO THE MID 80'S. PATIENT REPOSITIONED ON HIS RIGHT SIDE AND HE IMPROVES WITH O2 SATS 98-100%, RR 30. PATIENT THEN PROVIDED HELGA CARE AND CLEAN LINENS. PATIENTS BOTH UPPER AND LOWER EXTREMITIES ELEVATED TO DECREASE EDEMA. ORAL CARE WITH SPONGES MOISTEN WITH WATER DONE AT THIS TIME.
--- NOTE | 2020-11-30 11:40 | NUR ---
PATIENT NOTED HOT TO TOUCH. AXILLARY TEMP READING 97.6 AND PATIENT HAS A FAN AT THE BEDSIDE. PATIENT GRUNTING AND MOVING HIS HEAD SIDE TO SIDE ATTEMPTING TO LIFT HIS HANDS UP IN THE AIR BUT UNABLE TOO. PATIENT IS RESTLESS AND GRIMACING/GRUNTING. PATIENT GIVEN MORPHINE 2 MG IV PUSH WELL TYLENOL 1000 MG FOR PAIN. BED LOCKED IN LOW POSITION, SIDE RAILS UP X2.
--- NOTE | 2020-11-30 12:26 | NUR ---
FSBS 327. PATIENT GIVEN 6 UNITS OF REGULAR INSULIN.
--- NOTE | 2020-11-30 13:14 | NUR ---
FAMILY MEMBER BROTHER CALLED REGARDING PATIENTS CURRENT STATUS. BROTHER WAS ABLE TO PROVIDE PASSWORD AND HE WAS UPDATED REGARDING CONDITION.
--- NOTE | 2020-11-30 14:00 | NUR ---
ROUNDING ON PATIENT. NO NEW ORDERS GIVEN AT THIS TIME.
--- NOTE | 2020-11-30 15:02 | NUR ---
PATIENT IS RESTING QUIETLY WITH EYES CLOSED..RR ARE FLUCTUATING B/W 30-50 PER MINUTE ON HIGH FLOW 60PLPM, FIO2 100% WITH NON REBREATHER AT 15 LPM. SPO2 94%.
--- NOTE | 2020-11-30 16:05 | NUR ---
PATIENT GRIMACING WITH INCREASED RESPIRATIONS IN THE UPPER 40'S AND PATIENT GRUNTING. MORPHINE 2MG GIVEN IV PUSH. WILL REASSESS FOR DECREASE IN RESTLESSNESS.
--- NOTE | 2020-11-30 16:40 | NUR ---
PATIENT IS STILL NOTED RESTLESS MOVING HIS HEAD SIDE TO SIDE AND GRUNTING OCCASIONALLY. PATIENT IS ALSO HICCUPING. RR-40. PATIENT IS REPOSITIONED ON HIS BACK WITH THE HEAD OF THE BED ELEVATED AT 45 DEGREES. PATIENT REMAINS ON HIGH FLOW NASAL CANNULA: 60LPM- 100% AND NON REBREATHER 100%.
--- NOTE | 2020-11-30 17:09 | NUR ---
FSBS BLOOD SUGAR 272. PATIENT COVERED WITH 4 UNITS OF REGULAR INSULIN.
--- NOTE | 2020-11-30 17:41 | NUR ---
PATIENT NOTED AGITATED AND RESTLESS NOT AWARE OF PHYSICAL LIMITATIONS AND WAS ATTEMPTING TO PULLING AT NON REBREATHER MASK TUBING. PATIENT ALSO GRUNTING AND MOVING HIS HEAD BACK AND FORTH. ATIVAN 2 MG GIVEN SLOW IV PUSH AT THIS TIME.
--- NOTE | 2020-11-30 18:23 | NUR ---
45 MINUTES POST ATIVAN IV PUSH PATIENT IS STILL RESTLESS AND IS GRUNTING WELL HAVE HICCUPS. PATIENT REPOSITIONED WITH 2 PERSON ASSIST. PATIENT REPOSITIONED UP IN BED AND HE BECAME VERY AGITATED WITH INCREASED RR-46. MORPHINE 2 MG GIVEN IV PUSH.
--- NOTE | 2020-11-30 19:16 | NUR ---
ASSESSED PT. PT IS MOANING AND GRIMACING. RESTLESS. RESP ARE 38 TO 42 PER MINUTE. MEDICATED WITH TYLENOL 1000MG IV ORDERS.
--- NOTE | 2020-11-30 20:11 | NUR ---
191/78PTS BLOOD PRESURE IS ELEVATED AT 191/78. LABETALOL 20 ML IVSP GIVEN.
--- NOTE | 2020-11-30 20:17 | NUR ---
BP IS 191/78. LABETALOL 10 MG IVSP GIVEN.
--- NOTE | 2020-11-30 20:25 | NUR ---
PT RESTING WITH EYES CLOSED. CALMER.
--- NOTE | 2020-11-30 21:22 | NUR ---
PATIENTS BP IS 163/85. PT IS NOW CALM AND RESTING AFTER ATIVAN 2MG ADMINISTRATION. SINUS RHYTHM ON DENTAL CERAMIST HELPER. PT WAS TURNED TO HIS RIGHT SIDE. LOWER EXTREMITIES ARE ELEVATED AND HEELS FLOATING. PROCALAMINE IS INFUSING AT 50 ML/HOUR VIA INFUSION PUMP. PT RECEIVING IVFS OF D51/4NS INFUSING AT 50 ML/HR VIA INFUSION PUMP.
--- NOTE | 2020-11-30 22:11 | NUR ---
MORPHINE 2 MG SIVP FOR PAIN AND RESTLESSNESS. RESPIRATIONS ARE 38 BPM.
--- NOTE | 2020-11-30 23:25 | NUR ---
MEDICATED WITH ATIVAN 2MG. RESP ARE 28 AT PRESENT TIME.
[2020-12-01] VITALS (23 sets, daily range): BP systolic 120–210; BP diastolic 61–126; TEMP 97.2–97.6
--- NOTE | 2020-12-01 00:01 | NUR ---
MORPHINE 2 MG IVSP HR IS 95. 02 84 PERCENT, RR 42, 179/89 BP/ 85 BPM. 01:10AM ATIVAN 2 MG GIVEN PT MOANING RESP ARE 47 TO 52 PER MINUTE. 02 SAT IS 73 PERCENT. PT CONTINUES TO MOAN AND GRIMACE AFTER MEDICATIONS.
--- NOTE | 2020-12-01 02:54 | NUR ---
PT WAS GIVEN MORPHINE 2 MG IVSP FOR RESTLESSNESS/MOANING/GROANING AND ELEVATED BP/HR AND LOWER 02 SATS. PT IS DNR STATUS. PT HAS COVID AND HAS REFUSED VENT SUPPORT SINCE HIS ADMISSION TO ICU. PT'S SISTER XIOMY DODGE CALLED THIS SHIFT AND KNEW PASSWORD. SHE WAS INFORMED OF HIS CONDITION.
--- NOTE | 2020-12-01 03:03 | NUR ---
PT'S HEART RATE IS 78 BPM SR. BP IS 159/54. RESPIRATIONS ARE 26. O2 SAT IS 79 PERCENT.
--- NOTE | 2020-12-01 04:47 | NUR ---
ATIVAN 2 MG IVSP GIVEN FOR PTS RESTLESSNESS. REPOSITIONED UP IN BED. REPOSITIONED PT IN HIGH FOWLERS POSITION. WIPED PT FOREHEAD AND COMBED HIS HAIR.
--- NOTE | 2020-12-01 06:31 | NUR ---
PT WAS REPOSITIONED AND MOANS. MORPHINE 2 MG IVSP GIVEN.
--- NOTE | 2020-12-01 07:22 | NUR ---
RECEVIED REPORT FROM MEME SAAVEDRA RN. ON ROUNDING PATIENT IS IN HIGH FOWLERS POSITION AND IS GROANING. CURRENT HR 89, SPO2 88%, RR-28 AND BLOOD PRESSURE 210/84. BILATERAL WILDA HOSE STILL PRESENT. 16.QUINTANA CATHETER INTACT DRAINING APPROX. 100 ML OF YELLOW URINE. FSBS 270. DOUBLE LUMEN PICC LINE INTACT TO THE LEFT UPPER ARM INFUSING PROCAL AT 50 ML AND D5 1/4 NS AT 50 ML. 20G TO THE LEFT IS PATENT AND INTACT AND SALINE LOCKED. BED LOCKED IN LOW POSITION.
--- NOTE | 2020-12-01 08:13 | NUR ---
LABETALOL 10 MG GIVEN ORDERED PRN FOR HIGH BLOOD PRESSURE 210/84.
[2020-12-01 08:21] LABS: PLATELET COUNT 60 K/uL (142-355)
[2020-12-01 08:30] LABS: POTASSIUM 4.5 mmol/L (3.6-5.2)
--- NOTE | 2020-12-01 08:45 | NUR ---
30 MINUTES POST LABETALOL PATIENT BLOOD PRESSURE REMAINS HIGH 174/93.
--- NOTE | 2020-12-01 08:52 | NUR ---
PATIENT IS RESTLESS AND IS GROANING MOVING HIS HEAD SIDE TO SIDE. INCREASED RR 43. PATIENT GIVEN MORPHINE 2MG IV PUSH AND TYLENOL 1000 MG IV PIGGYBACK. WILL REASSES FOR DECREASE IN RESTLESSNESS.
--- NOTE | 2020-12-01 09:00 | NUR ---
ROUNDED THIS MORNING. NEW ORDERS GIVEN FOR PROTONIX 40 MG GIVEN ONCE DAILY, HOLD LOVONOX 40MG SUQ TODAY- LOW PLATELETS 60.
--- NOTE | 2020-12-01 09:22 | NUR ---
30 MINUTES POST MORPHINE PATIENT IS STILL RESTLESS AND GROANING WITH INCREASED RESPIRATIONS IN THE UPPER 40'S.
--- NOTE | 2020-12-01 09:55 | NUR ---
PATIENT HAS STARTED TO BECOME RESTLESS AGAIN GROANING OUT LOUD. RR 30, SPO2 89, B/P 174/93, HR-84.
--- NOTE | 2020-12-01 10:02 | NUR ---
PATIENTS BLOOD PRESSURE READING 197/86, HR 103, SPO2 86%, RR-50. PATIENT GIVEN HYDRALAZINE 10 MG IV PUSH, LASIX 20 MG IV PUSH X1 AND ATIVAN 2MG IV PUSH.
--- NOTE | 2020-12-01 10:19 | NUR ---
BROTHER NOEMÍ CALLED AND GAVE PASSWORD TO CHECK ON PATIENT STATUS. FAMILY MEMBER UPDATED. THIS NURSE STATED PATIENT WAS MORE RESTLESS THIS MORNING AND BLOOD PRESSURE WAS UP BUT HE WAS BEING MEDICATED WITH MEDICATIONS TO HELP DECREASE BLOOD PRESSURE WELL MEDS FOR HIS RESTLESSNESS AND INCREASED WORKFORCE OF BREATHING. BROTHER REQUESTED PHONE BE TAKEN TO PATIENT SO HE COULD TALK TO HIM. DID EXPLAIN TO THAT PATIENT IS STILL VERY SICK AND WITH MEDICATIONS TO HELP HIM REST HE IS UNABLE TO HOLD A CONVERSATION BUT WOULD HOLD THE PHONE TO HIS EAR SO HE COULD TALK TO HIM. PHONE PLACED TO PATIENTS EAR FOR A FEW MINUTES AND PATIENT BECOME MORE RESTLESS WITH INCREASED RR 46 BREATHS PER MINUTE. AFTER SPOKE WITH PATIENT THIS NURSE TALKED TO HIM AND EXPLAINED PATIENT NEEDED TO REST AT THE MOMENT AND LET MEDICATIONS HELP HIM REST. STATED THAT HIS BROTHER WOULD NOD HIS HEAD MEANING YES THAT HE WANTED TO BE INTUBATED. THIS NURSE WAS STANDING AT THE BEDSIDE AND NO SUCH COMMUNICATION WAS NOTED. EXPALINED TO HIS BROTHERS WISH TO BE A DNR PRIOR TO DECLINING HEALTH. STATED "OK".
--- NOTE | 2020-12-01 10:34 | NUR ---
30 MINUTES POST HYDRALAZINE BLOOD PRESSURE 168/86, HR 100, SPO2 87%, RR-43.
--- NOTE | 2020-12-01 10:57 | NUR ---
PATIENT IS AGITATED GROANING OUT LOUD AND BREATHING IS INCREASED WITH RR 48-50 BREATHS PER MINUTE. PATIENT GIVEN MORPHINE 2 MG IV PUSH.
--- NOTE | 2020-12-01 10:57 | NUR ---
PATIENT GIVEN MORPHINE 2 MG IV TO HELP WITH RESTLESSNESS AND INCREASED WORKFORCE OF BREATHING WITH RESPIRATONS 46. BLOOD PRESSURE 174/93.
--- NOTE | 2020-12-01 11:27 | NUR ---
30 MINUTES POST MORPHINE 2 MG IV BLOOD PRESSURE IS 168/86, HR 100, SPO2 87. RR-43. PATIENT REPOSITIONED ON HIS LEFT SIDE FOR COMFORT.
--- NOTE | 2020-12-01 12:24 | NUR ---
PATIENTS SISTER RONNIE CALLED AND GAVE PASSWORD. FAMILY MEMBER UPDATED ON PATIENT CURRENT CONDITION.
--- NOTE | 2020-12-01 13:32 | NUR ---
PATIENT REPOSITONED UP IN BED WITH 2 PERSON ASSIST ON TO HIS LEFT SIDE WITH PILLOWS ON HIS BACK FOR SUPPORT. ORAL CARE PROVIDED. LIP MOISTURIZOR.
--- NOTE | 2020-12-01 14:01 | NUR ---
30 MINUTES POST MORPHINE 2MG IV ADMINISTRATION PATIENT IS MORE COMFORTABLE WITH IMPROVEMENT IN HIS 02 SATS NOW 93%, RESPIRATIONS HAVE DECREASED TO 28 AND ARE NOT LABORED HR-81 AND BLOOD PRESSURE 144/79.
--- NOTE | 2020-12-01 15:35 | NUR ---
PATIENT NOTED WITH INCREASED WORKFORCE OF BREATHING WITH PATIENT RR-48-52 AND SPO2 87%. PATIENT GIVEN MORPHINE 2 MG IV PUSH.
--- NOTE | 2020-12-01 15:54 | NUR ---
PATIENT GIVEN ATIVAN 2 MG IV PUSH FOR INCREASED RESTLESSNESS. PATIENT MOVING HIS HEAD TO THE SIDES AND MOVING HIS ARMS. 175/85, HR 106, RR 50.
--- NOTE | 2020-12-01 16:43 | NUR ---
PATIENT REPOSITIONED ON HIS RIGHT SIDE BUT IS NOT TOLERATING WELL CURRENT HR 107, SPO2 81%, RR-55, B/P 178/85.
--- NOTE | 2020-12-01 18:10 | NUR ---
PATIENT NOTED INCREASINGLY RESTLESS WITH RESPIRATIONS HIGH 60 BREATHS PER MINUTE, B/P 175/99, HR 113. PATIENT GIVEN MORPHINE 2MG IV PUSH FOR INCREASED WORKFORCE OF BREATHING AND RESTLESSNESS.
--- NOTE | 2020-12-01 18:50 | NUR ---
NEW ORDERS RECEIVED PER DR. GILBERT. PT WITH ELEVATED RESP RATE, BP ELEVATED, PT VERY RESTLESS AND MOANING, AND ELEVATED HR. NEW ORDERS ARE ATIVAN 2 MG IVSP, TYLENOL 1000MG IV, MORPHINE SULFATE 2 MG IV, AND LASIX 20 MG IV. MEDICATIONS WERE GIVEN ORDERED. PT IS USING HIGH FLOW OXYGEN AND NRB MASK. 16 [place] QUINTANA CATHETAR IN INTACT AND DRAINING YELLOW URINE. PICC POLLY INTACT TO RIGHT ANTECUBITAL AREA AND DRESSING IS CLEAN AND DRY. PT IS STIMULATED EASILY TO TOUCH AND SOUND. ANXIOUS. OCCASSIONAL PVC IS NOTED. PT IS DNR STATUS PER HIS REQUEST AND DOCUMENT IS IN CHART. PT WAS REPOSITIONED IN BED. PULLED UP AND TURNED TO HIS LEFT SIDE. UPPER EXTREMITIES ELEVATED ON PILLOWS. PT POSITIVE COVID.
--- NOTE | 2020-12-01 20:06 | NUR ---
PT'S RESP RATE IS 46 PER MINUTE AND PT CONTINUES TO MOAN. MEDICATED WITH MORPHINE 2 MG IVSP. ASSESSED URINE OUTPUT 1400 AT PRESENT. AFTER THE LASIX ADMINISTRATION.
--- NOTE | 2020-12-01 20:56 | NUR ---
PT ANXIOUS. MEDICATED WITH ATIVAN 2 MG IVSP. RESPIRATIONS ARE 44 PER MINUTE.
--- NOTE | 2020-12-01 21:06 | NUR ---
PT IS NPO NO PO MEDICATIONS GIVEN.
--- NOTE | 2020-12-01 21:24 | NUR ---
EMPTIED 1500 ML OF YELLOW URINE.
--- NOTE | 2020-12-01 22:13 | NUR ---
HYDRALAZINE 10 MG IVSP GIVEN ORDERED. PT IS RESTING AT THIS TIME.
--- NOTE | 2020-12-01 22:22 | NUR ---
BLOOD PRESSURE IS 120/69. HR IS 96 BPM. O2 SATS 91 PERCENT. RR IS 30.
--- NOTE | 2020-12-01 22:52 | NUR ---
PT'S BP IS 127/67 AND HEART RATE IS 95. O2 SAT IS 91 PERCENT. RESP ARE 34 PER MINUTE.
--- NOTE | 2020-12-01 23:41 | NUR ---
MORPHINE 2 MG IVSP GIVEN FOR PAIN. PT MOANING AND RESP AT 45.
[2020-12-02] VITALS (23 sets, daily range): BP systolic 128–173; BP diastolic 60–97; TEMP 97.3–99
--- NOTE | 2020-12-02 00:05 | NUR ---
PT WAKING UP AND BECOMING RESTLESS AND AGITATED. RESP INCREASE TO 38 PER MINUTE. BP INCREASED TO 141/79. MEDICATED WITH TYLENOL 1000 MG IV ORDERED.
--- NOTE | 2020-12-02 01:00 | NUR ---
ATIVAN 2 MG IVSP GIVEN FOR AGITATION. INCRESE HR/BP/RESP RATE.
--- NOTE | 2020-12-02 01:28 | NUR ---
REPOSITIONED IN BED. ORAL CARE GIVEN.
--- NOTE | 2020-12-02 01:49 | NUR ---
RESPIRATIONS ARE AT 40 TO 50 PER MINUTE. PT HAS BEEN GIVEN ATIVAN/MORPHINE AND TYLENOL.
--- NOTE | 2020-12-02 01:57 | NUR ---
PT CONTINUES TO MOAN AND RESP ARE 47 TO 48 PER MINURE. O2 SAT IS 88 PERCENT. HR IS 90. PT IS DNR STATUS.
--- NOTE | 2020-12-02 02:00 | NUR ---
BP REASSESSED 138/74.
--- NOTE | 2020-12-02 02:09 | NUR ---
REPOSITIONED TO LEFT SIDE. RESP UP TO 46 PER MINUTE. O2 SAT IS 85 PERCENT.
--- NOTE | 2020-12-02 03:49 | NUR ---
PT WITH RESPIRATIONS OF 22 PER MINUTE, MORPHINE 2 MG IVSP GIVEN.
--- NOTE | 2020-12-02 04:05 | NUR ---
REPOSITIONED IN BED. ORAL CARE GIVEN. PT IS RED IN COLOR. TEMP IS 97.6. COLD CLOTH APPLIED TO HEAD. WIPED FACE. PT WITH BELCHING/HICCUPS.
--- NOTE | 2020-12-02 04:30 | NUR ---
BP IS 166/84. LABETALOL 10 MG GIVEN.
--- NOTE | 2020-12-02 04:40 | NUR ---
BLOOD AAWN FROM PICC LINE FOR CBC AND CMP.
--- NOTE | 2020-12-02 04:44 | NUR ---
HYDRALAZINE 10 MG IV GIVEN ORDERED FOR BP AT 04:00.
--- NOTE | 2020-12-02 04:54 | NUR ---
ATIVAN 2 MG IVSP GIVEN FOR AGITATION/MATILDE/ RESP ARE 60.
[2020-12-02 05:00] LABS: POTASSIUM 4.7 mmol/L (3.6-5.2)
[2020-12-02 05:02] LABS: PLATELET COUNT 34 K/uL (142-355)
--- NOTE | 2020-12-02 05:45 | NUR ---
MORPHINE 2 MG IVSP GIVEN FOR PT'S AGITATION AND MOANING. REPOSITIONED IN BED.
--- NOTE | 2020-12-02 05:48 | NUR ---
REASSESS BP AFTER LABETALOL. BP IS 128/60. HR IS 84 BPM. RR 38. O2 SAT IS 78. BLOOD RESULTS BACK FROM LAB.
--- NOTE | 2020-12-02 05:55 | NUR ---
AFTER MEDICATIONS GIVEN PRIOR PT CONTINUES TO MOAN AND BE TACHYPNEIC AT 66 BREATHS PER MINUTE. O2 SAT IS 75 PERCENT WITH NRB MASK ON AND HIGH FLOW OXYGEN AT 60L 100 PERCENT. CONTINUES TO HAVE HICCUPS. BP NOW IS 142/74. PT IS DNR STATUS.
--- NOTE | 2020-12-02 06:39 | NUR ---
HYDRALAZINE 10MG IVP GIVEN FOE ELEVATED BP OF 161/77.
--- NOTE | 2020-12-02 06:59 | NUR ---
BP RECHECKED 151/73.
--- NOTE | 2020-12-02 07:09 | NUR ---
REPORT RECEIVED FROM MEME SAAVEDRA RN. ON ASSESSMENT PATIENT REMAINS LETHARGIC AND IN SEVERE RESPIRATORY DISTRESS WITH RESPIRATIONS AT 66 BREATHS PER MINUTE, HR 115, SPO2 73% ON HFNC 60LPM; FIO2 100% AND NON REBREATHER 15 LPM. PATIENTS FACE IS RED AND WARM TO TOUCH, AXILLARY TEMP 97.6. PATIENT GROANS. PATIENT WAS REPOSITIONED ON TO HIS LEFT SIDE WITH PILLOW FOR SUPPORT. PICC LINE TO THE LEFT UPPER IS PATENT AND DRESSING C/D. IV IS INFUSING PROCAL AT 50 ML/HR AND D5 1/4 NS AT 50 ML/HR. 16F.QUINTANA IS PATENT AND DRAINING 100 ML OF TRAY COLORED URINE. BILATERAL WILDA HOSE IN PLACE FOR DVT PROPHYLAXSIS. BED IS LOCKED IN LOW POSITION, SIDE RAILS UP X2.
--- NOTE | 2020-12-02 08:12 | NUR ---
FSBS 311.
--- NOTE | 2020-12-02 09:25 | NUR ---
DEXAMETHASONE 6 MG GIVEN IV PUSH AND ROCEPHIN 1 GRAM GIVEN IV PIGGYBACK. PATIENTS BLOOD SUGAR 311 AND WAS COVERED WITH 8 UNITS OF REGULAR INSULIN SUBQ IN THE ABDOMEN.
--- NOTE | 2020-12-02 10:15 | NUR ---
MAKE ROUNDS THIS MORNING. LOVONOX HELD DUE TO PLATELETS LOW AT 30 ON AM LABS THIS MORNING.
--- NOTE | 2020-12-02 11:06 | NUR ---
FATHER IN LAW MR. CANTOR CALLED FOR PATIENT STATUS UPDATE AND GAVE THE PASSWORD ON FILE. UPDATED ON PATIENT CURRENT STATE AND WAS INFORMED HE WAS VERY RESTLESS TODAY WITH 02 SATS IN THE LOW 70'S -80'S WITH RR 50-60'S AND THAT HE WAS GETTING PAIN MORPHINE TO HELP WITH HIS BREATHING. STATED MR. STREETER TAKES PAIN MEDICATION DAILY 30 MG MS CONTIN BID OR ROXICODONE BUT THAT HE SEES A PAIN MANAGEMENT PHYSICIAN IN [place], [place] . HE STATED HE HAD BILATERAL FEET AND LOWER BACK PAIN. PATIENT USES [facility] IN [place], [place].
--- NOTE | 2020-12-02 11:35 | NUR ---
FSBS 275 COVERED WITH 5 UNITS OF REGULAR INSULIN SUQ.
--- NOTE | 2020-12-02 12:35 | NUR ---
30 MINUTES POST MORPHINE 2MG IV PUSH. PATIENT IS STILL NOTED WITH RR 60, HR-111, SPO2 75%, B/P 160/79.
--- NOTE | 2020-12-02 12:50 | NUR ---
PATIENT PLACED SUPINE AND GIVEN A BED BATH AND CLEAN LINENS APPLIED. PATIENT REPOSITIONED UP IN BED AND ON HIS BACK 40 DEGREES.ORAL CARE PROVIDED AND LIPS MOISTURIZED. PILLOWS PLACED UNDER ALL EXTREMITIES TO PREVENT SWELLING. PATIENTS RR HAVE INCREASED AND ARE LABORED IN THE 60'S NAD IS TACHY AT 116. ATTEMPT MADE TO CALM PATIENT INSTRUCTING HIM TO TRY AND TAKE SLOWER BREATHS BUT PATIENT IS LETHARGIC AND UNABLE TO FOLLOW COMMANDS. SPO2 74%.
--- NOTE | 2020-12-02 13:13 | NUR ---
H2O CHANGED FOR HFNC.
--- NOTE | 2020-12-02 13:17 | NUR ---
SPOKE TO DR GILBERT REGARDING PT RESP STATUS. NEW ORDERS GIVEN TO D/C MORPHINE 2 MG Q2 HR. NEW ORDERS GIVEN TO START MORPHINE 2MG IVP Q1HR.
--- NOTE | 2020-12-02 13:38 | NUR ---
PATIENT RESPIRATIONS AT 54. SPO2- 83%. HR AT 103. PRN MORPHINE GIVEN FOR SOB.
--- NOTE | 2020-12-02 14:42 | NUR ---
TYLENOL 1000 MG GIVEN IV FOR PAIN AT THIS TIME.
--- NOTE | 2020-12-02 15:00 | NUR ---
PATIENT WAS NOTED GETTING RESTLESS AND AGITATED WITH INCREASED RR 56,B/P 161/79, SPO2 84%. PATIENT REPOSITIONED ON HIS BACK. MORPHINE 2MG GIVEN IV PUSH.
--- NOTE | 2020-12-02 15:52 | NUR ---
HYDRALAZINE 10 MG GIVEN SLOW IV PUSH FOR BLOOD PRESSURE OF 161/79.
--- NOTE | 2020-12-02 16:00 | NUR ---
POST MEDICATION OF HYDRALAZINE BLOOD PRESSURE IS 156/87 BUT PATIENT IS STILL VERY RESTLESS AND RESPIRATIONS ARE 56.
--- NOTE | 2020-12-02 16:21 | NUR ---
MORPHINE 2 MG IV PUSH FOR INCREASED RESTLESSNESS SECONDARY TO RR-60 AND SPO2 81%.
--- NOTE | 2020-12-02 16:38 | NUR ---
FSBS 241. PATIENT COVERED WITH 3 UNITS OF REGULAR INSULIN SUBQ TO THE ABDOMEN.
--- NOTE | 2020-12-02 16:51 | NUR ---
30 MINUTES POST MORPHINE FOR SHORTNESS OF BREATH, PATIENT RESPIRATIONS REMAIN AT 50-60'S ABDOMINAL USE.
--- NOTE | 2020-12-02 17:49 | NUR ---
MORPHINE 2 MG GIVEN IV PUSH FOR SHORTNESS OF BREATH, INCREASED RESTLESSNESS RR 56.
--- NOTE | 2020-12-02 18:06 | NUR ---
PLACED PT ON BIPAP AT 14/8 100% FIO2. PT HAS 570 VT, 14.1 PIP, 20.2 VE, 78.5 PEAK FLOW, 1:1.4 IE RATIO. HR-96, RR-38, SPO2-91%. PT IS TOLERATING WELL AT THIS TIME. WILL CONTINUE TO MONITOR.
--- NOTE | 2020-12-02 18:06 | NUR ---
PATIENT PLACED ON BIPAP WITH THE FOLLOWING SETTINGS: MODE S/T, FIO2 100%, RATE 12. PATIENT GIVEN MORPHINE 2 MG PRIOR TO BIPAP FOR INCREASED RR-63 AND SPO2 85%. PATIENT IS CURRENTLY TOLERATING BIPAP WELL. CURRENT SPO2 94%, RR-37, B/P 140/76, HR 98
--- NOTE | 2020-12-02 18:19 | NUR ---
30 MINUTES POST MORPHINE 2 MG IV PUSH PATIENT IS ON THE BIPAP WITH SPO2 96%, HR 95, RR-37.
--- NOTE | 2020-12-02 19:30 | NUR ---
PT AWAKE RESTLESS IN BED AND MOANING/GRUNTING SLIGHTLY AT TIMES, GAVE MORPHINE 2MG SLOW IVP PRN. PICC LINE INTACT TO L UPPER ARM WITH NO PROBLEMS NOTED TO SITE, PROCAL AND D5 1/4 NS INFUSING AT 50ML/HR, BIPAP IN USE WITH O2 SAT OF 93%, RESP RATE 48 LABORED SLIGHTLY, FLAME ANNEALING MACHINE SETTER IN USE WITH REGULAR RATE OF 103 NOTED, QUINTANA PATENT DRAINING TO BEDSIDE WITH CLEAR YELLOW URINE NOTED IN BAG. HOB ELEVATED, WILL MONITOR CLOSELY, RAILS UP, BED IN LOW POSITION, CALL LIGHT IN REACH.
--- NOTE | 2020-12-02 21:15 | NUR ---
RESTING WITH EYES CLOSED, NO S/S OF PAIN OR DISTRESS NOTED, BIPAP IN USE, VITALS BEING MONITORED, PICC LINE INTACT WITH PROCAL AND D5 1/4 NS INFUSING AT 50ML/HR, HOB ELEVATED, WILL MONITOR CLOSELY, RAILS UP, BED IN LOW POSITION.
--- NOTE | 2020-12-02 22:25 | NUR ---
PT AWAKE BUT EYES CLOSED, RESTLESS MOVING HANDS AND HEAD OVER AND OVER. GAVE ATIVAN 2MG SLOW IVP PRN AT 2230, WILL MONITOR CLOSELY, RAILS UP, BED IN LOW POSITION, CALL LIGHT IN REACH.
--- NOTE | 2020-12-02 23:00 | NUR ---
RESTING WITH EYES CLOSED, NO S/S OF PAIN OR DISTRESS NOTED, PICC INTACT TO L UPPER ARM, VITALS BEING MONITORED, GEOGRAPHIC INFORMATION SYSTEM SURVEYOR IN USE WITH RATE OF 95, QUINTANA PATENT, WILL MONITOR CLOSELY, RAILS UP, BED IN LOW POSITION.
--- NOTE | 2020-12-02 23:40 | NUR ---
PT RESTLESS LEANING FORWARD IN BED OVER AND OVER AND MOANING/GRUNTING OUT. ATTEMPTED TO REASSURE PT. GAVE MORPHINE 2MG SLOW IVP PRN. RESP RATE 50, HEART RATE INCREASED TO 110s, WILDA HOSE IN USE, VITALS BEING MONITORED, BIPAP IN USE. REPOSITIONED PT IN BED TO L SIDE, HOB ELEVATED, FEET AND HANDS ELEVATED ON PILLOWS, O2 SAT 91%. WILL MONITOR CLOSELY, RAILS UP, BED IN LOW POSITION.
[2020-12-03] VITALS (17 sets, daily range): BP systolic 134–176; BP diastolic 66–783; TEMP 97.5–99.8
--- NOTE | 2020-12-03 00:10 | NUR ---
PT NOW RESTING WITH EYES CLOSED, NO LONGER RESTLESS OR MOANING OUT, RESP RATE 48, HEART RATE 105,BIPAP IN USE, WILL MONITOR CLOSELY, RAILS UP, BED IN LOW POSITION, CALL LIGHT IN REACH.
--- NOTE | 2020-12-03 01:51 | NUR ---
PT LAYING IN BED RESTLESS, KEEP LEANING HEAD FOWARD REPEATEDLY AND MOANS SOME. GAVE MORPHINE 2MG SLOW IVP PRN, WILL MONITOR CLOSELY, RAILS UP, BED IN LOW POSITION.
--- NOTE | 2020-12-03 02:22 | NUR ---
RESTING WITH EYES CLOSED, NO S/S OF PAIN OR DISTRESS NOTED, WILL MONITOR CLOSELY, RAILS UP, BED IN LOW POSITION.
--- NOTE | 2020-12-03 03:06 | NUR ---
PT RESTLESS AT THIS TIME WITH SOME RESPIRATORY DISTRESS NOTED, GAVE ATIVAN 2MG SLOW IVP PRN. VITALS BEING MONITORED, BIPAP IN USE WITH 100% FIO2 AND O2 SAT 96%, RESP RATE 49, PICC LINE INTACT TO L UPPER ARM WITH NO PROBLEMS NOTED TO SITE, D5 1/2 NS AND PROCAL INFUSING AT 50ML/HR, QUINTANA PATENT DRAINING TO BEDSIDE, FEET AND ARMS ELEVATED ON PILLOWS, WILDA HOSE IN USE, HOB REMAINS ELEVATED, REPOSITIONED TO BACK IN LAST HOUR. WILL MONITOR, RAILS UP, BED IN LOW POSITION.
--- NOTE | 2020-12-03 03:40 | NUR ---
RESTING WITH EYES CLOSED WITH NO S/S OF PAIN OR DISTRESS NOTED, WILL MONITOR CLOSELY, RAILS UP, BED IN LOW POSITION.
--- NOTE | 2020-12-03 05:45 | NUR ---
PT RESTLESS AND MOANING SOFTLY, MOVING HEAD SIDE TO SIDE REPEATEDLY, RESP REMAINS RAPID 50. GAVE MORPHINE 2MG SLOW IVP PRN. PT REPOSITIONED IN BED, HANDS AND FEET ELEVATED ON PILLOWS, WILDA HOSE IN USE, HOB ELEVATED, QUINTANA PATENT, PICC INTACT TO L UPPER ARM, VITALS BEING MONITORED, WILL MONITOR CLOSELY, RAILS UP X3, BED IN LOW POSITION, CALL LIGHT IN REACH.
--- NOTE | 2020-12-03 06:14 | NUR ---
RESTING IN BED WITH EYES CLOSED, NO S/S OF PAIN OR DISTRESS NOTED, WILL MONITOR CLOSELY, RAILS UP X3, BED IN LOW POSITION, HOB ELEVATED.
[2020-12-03 06:28] LABS: PLATELET COUNT 27 K/uL (142-355)
[2020-12-03 06:49] LABS: POTASSIUM 5.6 mmol/L (3.6-5.2)
--- NOTE | 2020-12-03 07:20 | NUR ---
MORPHINE 2 MG GIVEN IV PUSH FOR WORKFORCE OF BREATHING. RR-47.
--- NOTE | 2020-12-03 08:41 | NUR ---
SHIFT ASSESSMENT COMPLETED. PATIENT IS STILL ON BIPAP FIO2 100% WITH SPO2 95%, HR-123, RR-49. PIC LINE TO THE UPPER LEFT ARM IS PATENT INACT WITH NO BLOOD DRAINAGE NOTED ON DRESSING AND IT IS INFUSING PROCAL 50 ML/HR AND D5 1/4 NS AT 50 ML/HR. 16F.QUINTANA CATHATER IS PATENT AND INTACTINFUSING DARK TRAY URINE. ALL EXTREMITIES ARE ELEVATED ON PILLOWS.BED LOCKED IN LOW POSITION AND SIDE RAILS X2.
--- NOTE | 2020-12-03 09:43 | NUR ---
MORPHINE 2 MG GIVEN IV PUSH FOR SHORTNESS OF BREATH AND INCREASED RR-47.
--- NOTE | 2020-12-03 09:45 | NUR ---
CALLED AND WAS UPDATED ON PATIENTS CONDITION. LABS WERE REPORTED TO FROM THIS MORNING. NO NEW ORDERS GIVEN AT THIS TIME.
--- NOTE | 2020-12-03 10:13 | NUR ---
30 MINUTES POST MORPHINE 2 MG IV PUSH, RR-44, HR-104, B/P 142/77
--- NOTE | 2020-12-03 10:56 | NUR ---
PATIENT REPOSITIONED ON HIS RIGHT SIDE WITH PILLOWS ON HIS BOTTOM TO KEEP PRESSURE OF THE BUTTOCKS.
--- NOTE | 2020-12-03 11:30 | NUR ---
FSBS 385. PATIENT COVERED WITH 8 UNITS OF REGULAR INSULIN SUQ TO HIS ABDOMEN.
--- NOTE | 2020-12-03 11:38 | NUR ---
MORPHINE 2 MG GIVEN IV PUSH FOR INCREASED WORKFORCE OF BREATHING AFTER ORAL CARE WITH RR 51.
--- NOTE | 2020-12-03 11:55 | NUR ---
ORAL CARE PROVIDED. DRY ORAL SECRETIONS NOTED AND CLEANED WITH ORAL SPONGES AND ORAL MOISTURIZER. PATIENT DID NOT TOLERATE WELL OFF BIPAP FOR ORAL CARE. WHILE PROVIDING ORAL CARE THE LEFT NARE STARTING BLEEDING BRIGHT RED BLOOD. LEFT NARE CLEANED AND BIPAP PLACED BACK. PATIENTS QUICKLY DESATS WHEN REMOVING THE BIPAP FOR A FEW SECONDS AND WHEN PLACING BIPAP MASK HE QUICKLY COMES UP TO 97%.
--- NOTE | 2020-12-03 12:34 | NUR ---
NEW ORDERS PLACED PER AND PHARMACY. DISCONTINUE PROCAL DUE TO HIGH POTASSIUM, DISCONTINUE LOVENOX DUE TO DECREASED PLATELETS 27, D5 1/ DISCONTINUED RATE OF 50 ML/HR AND INCREASED TO 100 ML/HR. ORDERS CARRIED OUT AT THIS TIME.
--- NOTE | 2020-12-03 12:47 | NUR ---
PATIENT AXILLARY TEMP READING 99.8. PATIENT GIVEN TYLENOL 1000 MG IV AT THIS TIME.
--- NOTE | 2020-12-03 14:37 | NUR ---
PATIENT NOTED RESTLESS AND RESPIRATIONS 36 AND MOVING HIS UPPER EXTREMITIES. ATIVAN 2 MG GIVEN IV PUSH TO DECREASE RESTLESSNESS.
--- NOTE | 2020-12-03 14:58 | NUR ---
IS HERE ROUNDING ON PATIENT. NEW ORDERS GIVEN FOR CONVALESCENT PLASMA.
--- NOTE | 2020-12-03 15:30 | NUR ---
PATIENT REPOSITONED ON TO HIS BACK FOR COMFORT. PILLOWS PLACED UNDER BOTH UPPER AND LOWER EXTREMITIES.
--- NOTE | 2020-12-03 15:53 | NUR ---
HYDRALAZINE 10 MG GIVEN SLOW IV PUSH FOR BLOOD PRESSURE 154/66.
--- NOTE | 2020-12-03 16:32 | NUR ---
ATTEMPT MADE TO CALL [facility] FOR CONSENT TO GIVE CONVALESCENT PLASMA BUT NUMBER GOES STRAIGHT TO VOICE MAIL. WILL ATTEMPT TO TRY CALL AGAIN.
--- NOTE | 2020-12-03 17:26 | NUR ---
PATIENT IS RESTING QUIETLY AND IS LESS RESTLESS. B/P 154/75, HR-100, RR-34, 97%.
--- NOTE | 2020-12-03 18:06 | NUR ---
MORPHINE 2MG GIVEN IV PUSH. PATIENTS RR-34, HR 100, SPO2 97%.
--- NOTE | 2020-12-03 19:23 | NUR ---
CALLED AND SPOKE WITH BROTHER ALEJANDRA STREETER TO SEE IF HE COULD CALL [facility] TO GET CONSENT FOR MEDICATION. BROTHER STATED HE WOULD ATTEMPT TO CALL MR. STREETER FATHER IN [place] ON THE PHONE BECAUSE HE STAYED WITH HIM AND LET HIM KNOW OR HE WOULD DRIVE TO THEIR HOUSE AND LET HER KNOW TO CALL THE HOSPITAL.
--- NOTE | 2020-12-03 21:20 | NUR ---
RESTING WITH EYES CLOSED WITH NO S/S OF ANXIETY OR RESTLESSNESS NOTED AT THIS TIME, VITALS BEING MONITORED, LAST SORTER IN USE, REPOSITIONED TO BACK WITH HOB ELEVATED, WILL MONITOR, RAILS UP, BED IN LOW POSITION.
--- NOTE | 2020-12-03 22:58 | NUR ---
PT SEEMS LITTLE AGITATED, RESP RATE INCREASED SOME ALONG WITH EFFORT. REPOSITIONED PT TO L SIDE HOB ELEVATED, FEET/ARMS ELEVATED ON PILLOWS, PT STILL SEEMS AGITATED. GAVE MORPHINE 2MG SLOW IVP PRN. WILL MONITOR CLOSELY, RAILS UP, BED IN LOW POSITION. REASSURED PT VERBALLY. BIPAP REMAINS IN USE.
[2020-12-04] VITALS (24 sets, daily range): BP systolic 115–171; BP diastolic 61–88; TEMP 97.9–100.5
--- NOTE | 2020-12-04 00:14 | NUR ---
PT RESTING IN BED ON L SIDE WITH EYES CLOSED, NO S/S OF PAIN OR DISTRESS NOTED, RESP RATE 35-40, BIPAP IN USE 29/12 FIO2 100% WITH SAT OF 96%, 16F QUINTANA PATENT DRAINING TO BEDSIDE, PICC INTACT TO L UPPER ARM WITH LIPIDS AND CLINAMIX INFUSING, WILDA HOSE IN USE, FEET AND ARMS ELEVATED ON PILLOWS, HOB ELEVATED, VITALS BEING MONITORED, PT BEING REPOSITIONED DURING SHIFT, WILL MONITOR CLOSELY, RAILS UP, BED IN LOW POSITION.
--- NOTE | 2020-12-04 00:32 | NUR ---
PT SEEMS ALITTLE RESTLESS AND RESPIRATORY RATE IN 40s, GAVE MORPHINE 2MG SLOW IVP PRN. PICC INTACT TO L UPPER ARM WITH LIPIDS AND CLINAMIX INFUSING, QUINTANA PATENT DRAINING TO BEDSIDE, HOB ELEVATED, FEET AND HANDS ELEVATED ON PILLOWS, VITALS BEING MONITORED, BIPAP IN USE WITH FIO2 100% AND O2 SAT OF 97%, HEART RATE TACHY 114. WILL MONITOR CLOSELY, RAILS UP X3, BED IN LOW POSITION, CALL LIGHT IN REACH.
--- NOTE | 2020-12-04 01:02 | NUR ---
RESTING CALMLY IN BED WITH EYES CLOSED, NO S/S OF PAIN OR ACUTE DISTRESS NOTED, HEART RATE PER SISTER SUPERIOR 110 REGULAR, RESP RATE 37, O2 SAT 97% ON BIPAP, NO REACTIONS NOTED TO PRN MORPHINE. WILL MONITOR CLOSELY, RAILS UP, BED IN LOW POSITION, CALL LIGHT IN REACH.
--- NOTE | 2020-12-04 03:00 | NUR ---
PT LAYING IN BED WITH EYES CLOSED WITH NO ACUTE DISTRESS. VITALS BEING MONITORED, PICC LINE INTACT, QUINTANA PATENT, COMMERCIAL SALES DIRECTOR IN USE WITH REGULAR RATE 112, WILDA HOSE IN USE. PT SLIGHTLY RESTLESS POSSIBLE S/S OF GENERALIZED PAIN, GAVE TYLENOL 1000MG IV PRN. WILL MONITOR CLOSELY, RAILS UP, BED IN LOW POSITION.
--- NOTE | 2020-12-04 03:30 | NUR ---
RESTING WITH EYES CLOSED, NO S/S OF PAIN OR ACUTE DISTRESS NOTED, PICC LINE INTACT, QUINTANA PATENT, LIPIDS AND CLINIMIX ONGOING, VITALS BEING MONITORED, WILDA HOSE IN USE, FEET AND HANDS ELEVATED ON PILLOWS, HOB REMAINS ELEVATED, ON BIPAP. WILL MONITOR CLOSELY, RAILS UP, BED IN LOW POSITION.
--- NOTE | 2020-12-04 05:12 | NUR ---
PT SEEMS TO AROUSE TO ASSOCIATE MEDIA DIRECTOR TOUCHING HIM TO GIVE CARE BUT DOES NOT OPEN EYES. SEEMS SLIGHTLY AGITATED/ANXIOUS, SHAKING HEAD SIDE TO SIDE IF HE DOES NOT LIKE THE BIPAP MASK ON HIS FACE. REASSURED PT WITH NO CHANGE. REPOSITIONED TO R SIDE, FEET AND ARMS ELEVATED ON PILLOWS, HOB ELEVATED, WILDA HOSE IN USE, PICC INTACT TO L UPPER ARM, VITALS BEING MONITORED, QUINTANA PATENT DRAINING TO BEDSIDE. WHEN ASSOCIATE MEDIA DIRECTOR TOUCHED PT AND GAVE CARE RESP RATE INCREASED FROM 30 TO 40 AND HEART RATE INCREASED FROM 105 TO 120. GAVE ATIVAN 2MG SLOW IVP PRN. WILL MONITOR CLOSELY, RAILS UP X3, BED IN LOW POSITION, CALL LIGHT IN REACH.
--- NOTE | 2020-12-04 05:45 | NUR ---
PT NO LONGER SHAKING HEAD, RESP RATE 38, HEART RATE REMAINS 118-120, SEEMS TO BE RESTING, O2 SAT 98% ON BIPAP. HOB ELEVATED, RAILS UP, BED IN LOW POSITION, WILL MONITOR CLOSELY.
[2020-12-04 05:54] LABS: POTASSIUM 5.5 mmol/L (3.6-5.2)
[2020-12-04 05:57] LABS: PLATELET COUNT 24 K/uL (142-355)
--- NOTE | 2020-12-04 07:09 | NUR ---
BLOOD SUGAR 467 10 UNITS OF REG INSULIN GIVEN SQ PER ORDERS AT THIS TIME. 0900 BLOOD SUGAR 479 10 UNITS OF REG INSULIN GIVEN PER MD ORDERS 0952 BLOOD SUGAR 513 WILL NOTIFY MD AND OBTAIN LABS FOR VERIFICATION
--- NOTE | 2020-12-04 08:20 | NUR ---
PT'S BLOOD SUGAR CHECKED AT THIS TIME AND NOTED TO BE 479. ATTMEPTED TO REACH DR GILBERT NO ANSWER AT THIS TIME. WILL CONT TO MONITOR AND TRY AGAIN TO REACH
--- NOTE | 2020-12-04 08:30 | NUR ---
CALLED DR GILBERT AND INFOMRED HIM OF LAB VALUES AND BS OF 479. WAS INSTRUCTED TO GIVE ANOTHER 10 UNITS OF HUM R NOW AND START THE LEVIMIR 15 UNITS SQ AT T HIS TIME. LEVEMIR WAS INCREASED TO BID PER .
--- NOTE | 2020-12-04 09:25 | NUR ---
PT'S BROTHER ALEJANDRA CALLED FOR UPDATE. UPDATE GIVEN AT THIS TIME. ALSO INFORMED HIM WE WERE STILL WAITING PN PT'S TO CALL AND GIVE TELEPHONE CONSENT FOR CONVALESANT PLASMA. HE STATED HE WOULD GO TO HER HOUSE AND SEE IF HE COULD FIND HER AND TELL HER TO CALL US
--- NOTE | 2020-12-04 09:54 | NUR ---
EDMUNDO FROM PHARM HERE AT THIS TIME DISCUSSING INSULIN DRIP AT THIS TIME. SHE WILL MIX AND BRING BACK FOR ME TO GET IT STARTED.
--- NOTE | 2020-12-04 10:19 | NUR ---
PT'S NIECE CALLED AND WANTED A UPDATE AT THIS TIME WELL. ATTEMPTED TO EXPLAIN TO HER I HAD JUST RECENTLY GIVEN ALEJANDRA AN UPDATE BUT SHE STATED SHE WANTED ONE WELL . 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 EXPLAINED WE WAS STILL WAITING ON TO CALL US TO GIVE US PERMISSON TO GIVE THE PLASMA. INFORMED HER THAT I HAD SPOKEN TO ALEJANDRA AND HE WAS GOING TO HER HOUSE TO GET HER TO CALL US
--- NOTE | 2020-12-04 10:30 | NUR ---
INSULIN DRIP STARTED AT THIS TIME PER MD ORDERS. DRIPS STARTED AT 1.7ML/HR WILL CONT TO MONITOR THE BLOOD SUGAR EVERY HR PROTOCOL.
--- NOTE | 2020-12-04 10:37 | NUR ---
SPOKE WITH ANOTHER FAMILY MEMEBER AT THIS TIME AND ROSELYN PROVIDED SO SIXTO OLMOS TO THEM AT THIS TIME. EXPLAINED TO HIM WE NEEDED THE PT'S TO CALL US CONCERNING PLASMA PT NEEDED. FMAILY MEMBER STATED " EDUARDO TOLD US [place]ED[place] SAIGNED AWAY HIS RIGHTS TO LIVE BUT NOW EDUARDO WANT HIS TO CALL TO CHANGE HIS MEDS?' SO I EXPLAINED TO HIM THAT PT HAD ONLY VERBALIZED HE DID NOT WANT TO BE ON VENT. EXPLAINED TO HIM THAT WE WOULD STILL TREAT THE PT AND THE ILLNESS. PT'S FAMILY MEMEBR VERBALZIED UNDERSTANDING AFTER EXPLAINING IT TO HIM. STILL AWAITING ON 'S CALL
--- NOTE | 2020-12-04 11:07 | NUR ---
PT'S SISTER URI CALLED AND STATED SHE HAD THE PT'S LEGAL POWER OF ATTONERY PAPER WORK. SHE ALSO STATED SHE WAS AT AN ATTONERYS OFFCIE AT THE TIME SHE CALLED ME. FAX NUMBER PROVIDED TO HER AND SHE STATED SHE WOULD FAX ME THE PAPERS SOON SHE COULD. I EXPLAINED TO HER I WOULD GET THEM TO DR GILBERT FOR REVIEW AND WOULD LET HER KNOW ONCE HE REVIEWED LEGAL DOCUMETNS.
--- NOTE | 2020-12-04 11:30 | NUR ---
PT'S BLOOD SUGAR CHECKED AT THIS TIME AND BS NOTED TO BE 418. LAB CALLED AND NOTIFIED OF STAT GLUCOSE FOR VERIFICATION.
--- NOTE | 2020-12-04 12:25 | NUR ---
EDMUNDO LUCAS PHD HERE AND REPORTED LAB VERIFICATION BLOOD SUGAR WAS 512. ATTMEPTED TO CALL DR GILBERT NO ANSWER. PER EDMUNDO INCREASE INSULIN DRIP TO 2.5ML/HR AND RECHECK BLOOD SUGAR AT 1315 AND WE WOULD LOOK AT LEVEL AND POSSIBLE CHANGES AT THAT TIME.
--- NOTE | 2020-12-04 13:15 | NUR ---
LABS DRAWN FROM PICC LINE AFTER WASTING AT THIS TIME FOR LAB VERIFICATION
--- NOTE | 2020-12-04 13:30 | NUR ---
PT'S RETURNED CALL AND TELEPHONE CONSENT OBTAINED PER MYSELF AND RADHA PATEL FOR CONVALESANT PLASMA TO BE GIVEN AT THIS TIME PER MD ORDERS ON 12/03/20. NEW CELL NUMBER OBTAINED FROM AT [facility] TIME WELL AND PLACED ON FRONT OF CHART.
--- NOTE | 2020-12-04 13:55 | NUR ---
SLIGHLTY INCREASE OF BRUSISING NOTED TO RT AC AND RT SHOULDER AND ABOVE BP CUFF PLACMENT. BP CUFF REMOVED PER LUI FARIAS RN AND PLACED ON RT LOWER EXT. READING FROM RT LOWER EXT NOTED TO BE 114/55. WILL CONT TO MONITOR BP AND GIVE MEDS ACCORDNIDLY.
--- NOTE | 2020-12-04 14:00 | NUR ---
POSITION CHANGED TO LEFT SIDE. PT MOVING HEAD WHILE CHANGING POISITIONS. GENTLY REMINDED THE PT HE WAS IN THE HOSP IN THE ICU AND WE WAS TURNING HIM ONTO HIS OTHER SIDE TO TRY TO RELAX. PT NOTED TO CALM BACK DOWN AND CLOSED EYES AT THIS TIME.
--- NOTE | 2020-12-04 14:01 | NUR ---
CRITICAL GLUCOSE CALLED AND REPORTED TO LUI FARIAS RN BLOOD SUGAR PER LAB VERIFICATION WAS 1188. PHARM NOTIFIED PER KEVIN FARIAS RN WHO NOTIFIED DR GILBERT AND NEW ORDERS REC'D TO START INUSLIN DRIP PER PROTOCOL. INSULIN DRIP INCREASED TO 12 UNITS/HR PER LUI.
--- NOTE | 2020-12-04 14:37 | NUR ---
DECREASED CLINDAMIX TO 50ML/HR PER MD ORDERS.
--- NOTE | 2020-12-04 15:10 | NUR ---
LAB RE-DRAWN FOR BLOOD SUGAR VERIFICATION FOR LAB AT THIS TIME. ALL IVF'S STOPPED FOR 15 MINS PRIOR TO LAB DRAW.
--- NOTE | 2020-12-04 15:40 | NUR ---
LAB CALLED WITH VERIFICATION BLOOD SUGAR OF 337 SO INSULIN DRIP DECREASED TO 7UNITS/HR PER PROTOCOL
--- NOTE | 2020-12-04 16:00 | NUR ---
BS CHECKED AT THIS TIME AND NOTED TO BE 268 SO INSULIN DRIP DECREASED TO 5 UNITS/HR PER PROTIOCOL.
--- NOTE | 2020-12-04 17:00 | NUR ---
BLOOD SUGAR OBTAINED AND 186 AT THIS TIME. INSULIN DRIP DECREASED TO 3UNITS/HR AT THIS TIME
--- NOTE | 2020-12-04 18:00 | NUR ---
BLOOD SUGAR OBTAINED AND 157 AND INSULIN DRIP DECREASED TO 2UNITS/HR PER PROTOCOL
--- NOTE | 2020-12-04 18:00 | NUR ---
CONVALESANT PLASMA STARTED AT THIS TIME PER MD ORDERS AND PROTOCOL
--- NOTE | 2020-12-04 19:18 | NUR ---
CONVALESCENT PLASMA FINISHED INFUSING AT THIS TIME WITH NO CURRENT S/S OF REACTIONS OR DISTRESS NOTED. PICC LINE FLUSHED WITH 10ML NS AND NS NOW INFUSING PER ORDER, NO PROBLEMS NOTED TO SITE. PT RESTING WITH EYES CLOSED, RAILS UP, BED IN LOW POSITION, CALL LIGHT IN REACH.
--- NOTE | 2020-12-04 19:25 | NUR ---
FSBS IS NOW 141, INSULIN DRIP STOPPED AT THIS TIME, WILL MONITOR CLOSELY.
--- NOTE | 2020-12-04 20:54 | NUR ---
RESTING WITH EYES CLOSED, NO S/S OF PAIN OR DISTRESS NOTED, VITALS BEING MONITORED, RESP RATE 32, HEART RATE 109 REGULAR, PICC LINE INTACT, QUINTANA PATENT, BIPAP IN USE WITH SAT OF 98%, WILL MONITOR CLOSELY, FEET AND ARMS ON PILLOWS, HOB ELEVATED, RAILS UP, BED IN LOW POSITION.
--- NOTE | 2020-12-04 22:08 | NUR ---
PT CONTINUES TO REST WITH EYES CLOSED, NO S/S OF PAIN OR DISTRESS NOTED, RESP RATE IN 30s, HEART RATE 110s REGULAR, VITALS BEING MONITORED, QUINTANA PATENT DRAINING TO BEDSIDE, PICC INTACT TO L UPPER ARM WITH NS CLINIMIX AND LIPIDS INFUSING PER ORDERS. REPOSITIONED IN BED TO R SIDE, HOB ELEVATED, FEET AND HANDS/ARMS ELEVATED ON PILLOWS TO HELP WITH NON PITTING EDEMA. PT DOES NOT SEEM TO GET AGITATED/RESTLESS WHEN CARE IS GIVEN NOTED DURING LAST FEW(PREVIOUS SHIFTS) SHIFTS THAT CLASSIFICATION OFFICER HAS CARED FOR PT. BIPAP IN USE. RAILS UP X3, BED IN LOW POSITION, CALL LIGHT IN REACH.
[2020-12-05] VITALS (15 sets, daily range): BP systolic 107–156; BP diastolic 55–87; TEMP 97.7–100.2
--- NOTE | 2020-12-05 00:20 | NUR ---
AROUND APPROX 0020 RESPIRATORY DECREASED FIO2 ON BIPAP TO 90%, PT APPEARS TO TOLERATE WITH NO PROBLEMS, O2 SAT 98% AT THIS TIME, PT RESTING IN BED WITH EYES CLOSED NO DISTRESS NOTED, REPOSITIONED IN BED TO BACK WITH HOB ELEVATED, FEET AND HANDS/ARMS ELEVATED ON PILLOWS TO HELP WITH EDEMEA, WILDA HOSE IN USE, PICC LINE INTACT, QUINTANA PATENT, VITALS BEING MONITORED, WILL MONITOR CLOSELY, RAILS UP, BED IN LOW POSITION.
--- NOTE | 2020-12-05 02:11 | NUR ---
PT CARE GIVEN, PT RESTLESS AFTER CARE WITH SOME GENERAL S/S OF DISCOMFORT NOTED(RESP RATE INCREASES ALONG WITH PULSE A TIMES), GAVE MORPHINE 2MG SLOW IVP PRN. PICC LINE INTACT, QUINTANA PATENT, BIPAP IN USE WITH FIO2 OF 90% AND O2 SAT OF 98%, VITALS BEING MONITORED, FEET AND HANDS ELEVATED ON PILLOWS, WILL MONITOR CLOSELY, RAILS UP, BED IN LOW POSITION.
--- NOTE | 2020-12-05 02:42 | NUR ---
RESTING WITH EYES CLOSED, NO S/S OF PAIN OR DISTRESS NOTED, NO REACTIONS NOTED TO PRN MEDICATION, WILL MONITOR CLOSELY, RAILS UP, BED IN LOW POSITION.
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
--- NOTE | 2020-12-05 05:11 | NUR ---
PT RESTING WITH EYES CLOSED, RECHECK IF TEMP AT THIS TIME AXILLARY TEMP 99.8, GAVE TYLENOL 1000MG IV PRN FOR FEVER AND GENERALIZED DISCOMFORT, NOTE HEART RATE IN 120s. WILL MONITOR CLOSELY. ONLY SHEET ON LOWER HALF OF PT'S LEGS NO BLANKET ON PT. RAILS UP, BED IN LOW POSITION, HOB ELEVATED.
--- NOTE | 2020-12-05 05:56 | NUR ---
RESTING WITH EYES CLOSED, NO S/S OF PAIN OR DISTRESS NOTED, RESP RATE 36, PIT OPERATOR IN USE WITH RATE OF 118 REGULAR, 16F QUINTANA PATENT WITH TRAY URINE NOTED IN BAG, BIPAP IN USE WITH FIO2 OF 90% 29/12 AND O2 SAT OF 98%, PICC INTACT TO L UPPER ARM WITH NS INFUSING AT 50ML/HR CLINIMIX INFUSING AT 50ML/HR AND LIPIDS(ALMOST COMPLETE) INFUSING AT 16.7ML/HR, BILATERAL HANDS AND FEET ELEVATED ON PILLOWS, HOB ELEVATED, REPOSITIONED TO BACK, RAILS UP X3, BED IN LOW POSITION, CALL LIGHT IN REACH. PT MOVES HEAD AND HAND SOME WHEN CARE GIVEN ALSO GETS AGITATED WHEN STAFF REPOSITIONS HIM IN BED(RESP RATE AND PULSE INCREASE BUT DECREASES ONCE NO STAFF IS TOUCHING/REPOSITIONING HIM).WILL MONITOR CLOSELY. PT STILL DOES NOT OPEN EYES, FOLLOW COMMANDS, OR ANSWER QUESTIONS, DOES NOT RESPOND TO STAFF VERBALLY IN ANY WAY.
[2020-12-05 06:00] LABS: PLATELET COUNT 27 K/uL (142-355)
[2020-12-05 07:04] LABS: POTASSIUM 5.3 mmol/L (3.6-5.2)
--- NOTE | 2020-12-05 09:05 | NUR ---
DR VEE CALLED TO [facility] ON PT. REVIEWED LABS, IV FLUIDS, FSBS & INSULIN GIVEN. NEW ORDERS.
--- NOTE | 2020-12-05 10:39 | NUR ---
REPORTED ELEVATED FSBS [address] YODER. NEW ORDERS. PT RESTING WITH EYES CLOSED. NO RESPONSE TO TOUCH OR VOICE AT THIS TIME. NO NOTED MOVEMENT OF EXTREMITIES.
--- NOTE | 2020-12-05 11:17 | NUR ---
REPORTED MAG& PHOS LEVELS IN PHARMACY. DISCUSSED TPN VS CLINIMIXIV. EDMUNDO WILL TALK WITH DR YODER & DECIDE WHAT WILL BE BEST FOR THIS PT. PT CONTINUES TO REST WITH EYES CLOSED. PT HAS NOT RESPONDED TO FSBS OR INSULIN INJECTIONS. FEET UP ON PILLOWS, HOB UP. PT CONTINUES ON BIPAP AT 90% O2.
--- NOTE | 2020-12-05 13:35 | NUR ---
BIPAP REMOVED, MOUTHCARE DONE. INCREASE RESP 33. APPROX 3CM AREA OF CONCERN NOTED TO LCHEEK AREA INCONTACT WITH BIPAP.
--- NOTE | 2020-12-05 13:45 | NUR ---
PT'S O2 DECREASED TO 85% PER RT. SMALL OPTIFOAM DRESSING TO L SIDE OF NOSE/CHEEK TO PAD AREA IN CONTACT WITH BIPAP.
--- NOTE | 2020-12-05 16:25 | NUR ---
DR VEE CALLED WITH NEW ORDERS TO RESTART INSULIN DRIP PER PROTOCOL & RESTART CLINIMIX. PT REMAINS CALM AT THIS TIME.
--- NOTE | 2020-12-05 16:55 | NUR ---
FSBS 247, INSULIN DRIP STARTED AT 5U/HR.BATH & PERSONAL CARE. PT PICKED UP HEAD & MOVED IT ON HIS PILLOW.
--- NOTE | 2020-12-05 18:00 | NUR ---
DR BOWERS IN TO SEE PT. PT CONTINUES TO REST WITH EYES CLOSED.
--- NOTE | 2020-12-05 19:20 | NUR ---
FSBS 201.
--- NOTE | 2020-12-05 19:51 | NUR ---
RECEIVED REPORT FROM ANGELIQUE GO RN. PATIENT IS IN A SUPINE POSITION WITH EXTREMITIES ELEVATED ON PILLOWS INCLUDING HIS BOTTOM. PATIENT IS ON BIPAP FIO2 80%, RATE 12. IV INSULIN DRIP AT 5 UNITS/JR, CLINIMIX AT 50ML/HR, STERILE WATER AT 50 ML/HR TO PIC LINE IN THE LEFT UPPER ARM. DRESSING IS C/D/I. 16.[place] PRESENT TO BEDSIDE DRAINAGE WITH 50 ML OF DARK TRAY URINE. BILATERAL SCD'S LOWER EXTREMITIES. BLOOD GLUCOSE CHECKED AND READING 201. WILL ADJUST ACCORDINGLY PER INSULIN DIRP PROTOCOL. BED IS LOCKED IN LOW POSITION, SIDE RAILS UP X2.
--- NOTE | 2020-12-05 21:38 | NUR ---
FSBS 176. INSULIN DRIP TITRATED DOWN PER INUSLIN PROTOCOL TO 2 UNITS/HR.
--- NOTE | 2020-12-05 22:13 | NUR ---
PATIENT IS RESTING QUIETLY IN BED ON BIPAP. CURRENT SPO2 91%.
--- NOTE | 2020-12-05 22:16 | NUR ---
FSBS 166. INSULIN DRIP REMAINS AT 2 UNITS/HR PER PROTOCOL.
--- NOTE | 2020-12-05 23:08 | NUR ---
PATIENT REPOSITIONED ON TO HIS LEFT SIDE WITH PILLOWS ON HIS BACK FOR SUPPORT AND ON BILATERAL EXTREMITIES. CURRENT SPO2 94%.
[2020-12-06] VITALS (9 sets, daily range): BP systolic 40–116; BP diastolic 17–57
--- NOTE | 2020-12-06 00:09 | NUR ---
FSBS 176. NO CHANGE TO INSULIN DRIP AT THIS TIME. INSULIN DRIP AT 2 U/HR.
--- NOTE | 2020-12-06 01:37 | NUR ---
FSBS 181. INSULIN TITRATED UP TO 3 UNITS/HR PER INSULIN PROTOCOL.
--- NOTE | 2020-12-06 02:04 | NUR ---
Patient repositioned on his back. All extremities elevated on pillows.
--- NOTE | 2020-12-06 03:03 | NUR ---
Patient repositioned on to his right side with pillows from supine position in which spo2 was reading 85%. Patient did not tolerate the left and supine position.
--- NOTE | 2020-12-06 03:10 | NUR ---
Patients was noted with a low blood pressure of 58/28, hr 103, spo2 80%, rr-24. notified in the ER and new order given for Levophed.
--- NOTE | 2020-12-06 03:19 | NUR ---
Levophed started at 6mcg/min per ICU protocol. Blood pressure reading 65/34, HR-102, spo2 83, RR-26.
--- NOTE | 2020-12-06 03:30 | NUR ---
Blood pressure 61/34, hr-89, spo2 87%, RR-16. Levophed titrated to 15 ml/hr.
--- NOTE | 2020-12-06 03:40 | NUR ---
Blood pressure reading 46/18, spo2 85%, Hr-49, rr-14. Apnea alarm sounding off on bipap monitor. Observed patient and he was having apenic episodes.
--- NOTE | 2020-12-06 03:50 | NUR ---
Patient noted pale from his face. Blood pressure reading 40/17, Hr-49, Spo2 62%, rr-13. Patient pupils assessed and it was noted were not reactive. from the ER notified.
--- NOTE | 2020-12-06 04:00 | NUR ---
is at the bedside and patient had . Pupils were fixed and dilated and there was no pulse. Patient pronounced at this time.
--- NOTE | 2020-12-06 04:16 | NUR ---
[facility] called per Miracle Joe RN. Patient was r/o for any organ donation.
--- NOTE | 2020-12-06 04:26 | NUR ---
Attempt made to notify of patients passing but no answer after two attempts. Called the next of kin sister in [place] but there was no answer as well. Lastly, called brother Adair and there was no answer. Will attempt to make contact with family again.
--- NOTE | 2020-12-06 04:50 | NUR ---
POST MORTEM CARE PROVIDED AND PATIENT TAKEN TO [facility].
--- NOTE | 2020-12-06 06:37 | NUR ---
ATTEMPT MADE TO CALL ROLF TO NOTIFY HER OF PATIENT EXPIRING. NO ANSWER. CALLED BROTHER ALEJANDRA AND THERE WAS NO ANSWER.
--- NOTE | 2020-12-06 11:22 | NUR ---
0866 - I called Mona with no answer. Will continue to try to contact.
--- NOTE | 2020-12-06 11:25 | NUR ---
0850: Pt niece called to check on the patient. I had the unfortunate responsibility to inform her of the patient passing. I told her that we have been trying to contact all the family for several hours. She said she would contact them if possible to inform of his passing.
--- NOTE | 2020-12-06 11:27 | NUR ---
0935: patient father in law Kyrie called and asked about what arrangements should be made at this time. I informed him that personal belongings should be obtained by a family member and that plans for arrangements should be made soon. He stated that the Mona would be picking up the patient's belongings and that someone would call back with arrangement plans.
--- NOTE | 2020-12-06 13:00 | NUR ---
11:55 - spoke with brother belen r/t brother passing
--- NOTE | 2020-12-06 13:02 | NUR ---
12:30 - Mona arrived to hospital to diamond picker Patient's belongings, all paperwork was signed. Still no arrangements made for services. She said she would call back with details after speaking with family
--- NOTE | 2020-12-07 17:59 | NUR ---
12/07/20 1740 NEW NOTE ENTERED DUE TO FATHER AND LAW JACQUELINE STRATTON CALLING TO NURSING STATION INQURING FOR CERTIFICATE ALSO A CAUSE OF FOR FAMILY MEMBER. 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 SAID THAT HIS DAUGHTER WILL CALL ON THURSDAY MORNING ABOUT ARRANGEMENTS.
== END 2020-12-06 04:00 | disposition expired | DRG 177 ==
LOC: ED 07:02 → MED/SURG 12:35 → ICU 11-26 15:07
PROVIDERS: Family Medicine; Internal Medicine Endocrinology, Diabetes & Metabolism; ADMIT Internal Medicine; ATTEND Internal Medicine
PROC: 02HV33Z Insertion of Infusion Device into Superior Vena Cava, Percutaneous Approach (ICD-10-PCS; principal; 2020-11-30)
PROC: B548ZZA Ultrasonography of Superior Vena Cava, Guidance (ICD-10-PCS; 2020-11-30)
PROC: 30233K1 Transfusion of Nonautologous Frozen Plasma into Peripheral Vein, Percutaneous Approach (ICD-10-PCS; 2020-12-04)
DX: U07.1 COVID-19 (principal); J96.01 Acute respiratory failure with hypoxia; E43 Unspecified severe protein-calorie malnutrition; E11.9 Type 2 diabetes mellitus without complications; N17.8 Other acute kidney failure; I10 Essential (primary) hypertension
CPT/HCPCS: 36415; 36571; 36600; 80053; 80061; 82550; 82553; 82805; 82947; 83735; 83880; 84100; 84484; 85007; 85027; 85379; 85610; 85730; 86900; 86901; 87040; 87635; 93005; 94640; 94660; 94664; 94760; 96365; 96375; 99285; C1751; J0132; J0360; J0456; J0696; J1100; J1650; J1815; J1940; J2060; J2270; J2405; J2930; J3490; P9017; Q9963; U0003